=== PATIENT | female | born 1990 | race Caucasian/White ===

== ENCOUNTER 2021-07-15 16:43 | Emergency (ER) | payer OTHER, MEDICAID, SELFPAY ==
--- NOTE | 2021-07-15 16:50 | DI.US.S_ITS ---
PROCEDURE: US OB <= 14 WEEKS FETUS INDICATIONS: VAGINAL BLEEDING OUTSIDE/PRIOR DATING DATA: Last menstrual period (LMP): Unknown. LMP-based estimated date of delivery (AMARILIS): Unknown. First dating scan (date and location): 07/15/2021. Estimated date of delivery (AMARILIS) from first dating scan: Not applicable. TECHNIQUE: Real-time scanning was performed of the fetus and maternal pelvic organs, with image documentation. Endovaginal scanning was also performed to better visualize the fetus and maternal ovaries. COMPARISON: None. FINDINGS: Embryo: No intrauterine gestational sac. No pole. Maternal organs: Right ovary is not visualized. The left ovary is unremarkable. Trace fluid in the cervix. IMPRESSION: 1. of uncertain location. No intrauterine gestational sac. This could represent a missed . 2. Right ovary is not visualized. Left ovary is unremarkable. Recommend trending beta hCG and short-term follow-up ultrasound if clinically indicated. We strive to produce accurate, complete, and clear reports of imaging services. To assist us in improving patient care, this report was composed using standard report templates and voice recognition software. Therefore, it may contain abnormal punctuation, insertions and/or omissions. Occasional wrong-word or sound-alike substitutions may occur. Though we review the report and make efforts to correct it, we do recommend that the report be read carefully in proper context to recognize any text inaccuracies. Dictated by: Luigi Anderson M.D. on 07/15/2021 at 18:42 Approved by: Luigi Anderson M.D. on 07/15/2021 at 18:45
[2021-07-15 16:54] VITALS: BP 133/63; PULSE 106; RESP 16; TEMP 37; O2SAT 100; BMI 28.5
--- NOTE | 2021-07-15 17:10 | ED_ITS ---
HPI - General Adult <Eugene Mosqueda DO - Last Filed: 07/16/21 07:09> General Chief complaint: OB/Uterine Contractions Stated complaint: Believes Having a Miscarrige Time Seen by Provider: 07/15/21 17:06 Source: patient Mode of arrival: Ambulatory History of Present Illness HPI narrative: Patient is a 30-year-old female. Is a at unknown dates. She did have a positive home test several weeks ago. She comes to the emergency department today for evaluation of lower abdominal pain and tenderness. Started yesterday. Also associated with vaginal bleeding. Passing clots. She does have a history of anemia. Pain seems to be associated more on the right side but it is both sides in her lower abdomen. No urinary symptoms. Related Data Home Medications Medication Instructions Recorded Confirmed alprazolam 1 mg tablet 1 mg PO TID PRN 07/15/21 07/15/21 quetiapine 200 mg tablet 200 mg PO BEDTIME 07/15/21 07/15/21 zolpidem 10 mg tablet 10 mg PO BEDTIME PRN 07/15/21 07/15/21 Allergies Allergy/AdvReac Type Severity Reaction Status Date / Time cephalexin [From Keflex] Allergy Hives Verified 07/15/21 16:59 ketorolac [From Toradol] Allergy ITCHING Verified 07/15/21 16:59 latex Allergy Verified 07/15/21 16:59 Review of Systems <Eugene Mosqueda DO - Last Filed: 07/16/21 07:09> Gastrointestinal Gastrointestinal: Reports as per HPI and Reports system reviewed and no additi onal complaints, except as documented Genitourinary Genitourinary: Reports system reviewed and no additional complaints, except as documented and Reports as per HPI Integumentary/Breasts Skin/Breast: Reports system reviewed and no additional complaints, except as documented Neurologic Neurologic: Reports system reviewed and no additional complaints, except as documented Hematologic/Lymphatic On Anticoagulants: No Patient History <DO Jeff Rosado Last Filed: 07/16/21 07:09> Medical History Anemia Social History Smoking Status: Current every day smoker Smoking Status: Current every day smoker Substance Use Type: does not use Exam <DO Jeff Rosado Last Filed: 07/16/21 07:09> Initial Vital Signs Initial Vital Signs: Vital Signs Temperature 98.6 F 07/15/21 16:54 Pulse Rate 106 H 07/15/21 16:54 Respiratory Rate 16 07/15/21 16:54 Blood Pressure 133/63 07/15/21 16:54 Pulse Oximetry 100 07/15/21 16:54 HENMT Head: normal to inspection and normocephalic Resp Effort & Inspection: normal respiratory effort Cardio Rate: regular rate GI Palpation: soft, No guarding and tender (Bilateral lower abdomen) Skin General: no rashes or lesions noted Neuro General: patient alert, patient awake and moves all extremities Extrem General: capillary refill normal Psych Appearance: grossly normal and well kempt <Marisol Wolf MD - Last Filed: 07/16/21 04:38> Initial Vital Signs Initial Vital Signs: Vital Signs Temperature 98.6 F 07/15/21 16:54 Pulse Rate 106 H 07/15/21 16:54 Respiratory Rate 16 07/15/21 16:54 Blood Pressure 133/63 07/15/21 16:54 Pulse Oximetry 100 07/15/21 16:54 Course <Eugene Mosqueda DO - Last Filed: 07/16/21 07:09> Orders Ordered: Discontinued Medications Hydrocodone Bitart/Acetaminophen (Hydrocodone/Acet 5/325 Tablet) 1 tab PO NOW ONE Stop: 07/15/21 17:11 Last Admin: 07/15/21 17:20 Dose: 1 tab Documented by: SANJANA Hydrocodone Bitart/Acetaminophen (Hydrocodone/Acet 5/325 Tablet) 1 tab PO NOW ONE Stop: 07/15/21 19:21 Last Admin: 07/15/21 19:42 Dose: 1 tab Documented by: SANJANA Vital Signs Vital signs: Vital Signs - 8 hr 07/15/21 20:41 Pulse Rate 70 Respiratory Rate 17 Blood Pressure 122/78 Pulse Oximetry 99 <Marisol Wolf MD - Last Filed: 07/16/21 04:38> Orders Ordered: Discontinued Medications Hydrocodone Bitart/Acetaminophen (Hydrocodone/Acet 5/325 Tablet) 1 tab PO NOW ONE Stop: 07/15/21 17:11 Last Admin: 07/15/21 17:20 Dose: 1 tab Documented by: SANJANA Hydrocodone Bitart/Acetaminophen (Hydrocodone/Acet 5/325 Tablet) 1 tab PO NOW ONE Stop: 07/15/21 19:21 Last Admin: 07/15/21 19:42 Dose: 1 tab Documented by: SANJANA Vital Signs Vital signs: Vital Signs - 8 hr 07/15/21 20:41 Pulse Rate 70 Respiratory Rate 17 Blood Pressure 122/78 Pulse Oximetry 99 Medical Decision Making <Eugene Mosqueda DO - Last Filed: 07/16/21 07:09> Lab Data Lab results reviewed: Yes I reviewed the patient's lab results. Result diagrams: 07/15/21 19:30 07/15/21 17:27 Labs: Lab Results 07/15/21 07/15/21 07/15/21 Range/Units 17:27 17:27 17:27 WBC 5.7 (4.5-11.0) X10^3/uL RBC 4.09 (4.0-5.2) X10^6/uL Hgb 7.9 L (12.0-16.0) g/dL Hct 25.8 L (36-46) % MCV 63.1 L (80-100) fL MCH 19.3 L (26-34) PG MCHC 30.6 (30-36) % RDW 17.9 H (11.6-14.8) % Plt Count 302 (150-400) X10^3/uL Neut % (Auto) 60.7 (50-75) % Lymph % (Auto) 32.2 (25-40) % [place] % (Auto) 3.4 (3-14) % Eos % (Auto) 3.1 (2-4) % Baso % (Auto) 0.6 (0-2) % Neut # (Auto) 3400 (2790-9802) /uL Lymph # (Auto) 1800 (1779-9124) /uL [place] # (Auto) 200 (0-900) /uL Eos # (Auto) 200 (0-450) /uL Baso # (Auto) 0 (0-100) /uL RBC Morphology See below Hypochromasia 1+ H Microcytosis 2+ H Sodium 143 (137-145) mmol/L Potassium 3.6 (3.4-5.1) mmol/L Chloride 109 H (98-107) mmol/L Carbon Dioxide 26 (22-32) mmol/L BUN 9 (7-17) mg/dL Creatinine 0.71 (0.52-1.04) mg/dL Estimated GFR > 60.0 (>60) mL/min BUN/Creatinine Ratio 12.7 (6-22) Glucose 94 (70-100) mg/dL Calcium 9.3 (8.4-10.2) mg/dL Total Bilirubin 0.3 (0.2-1.3) mg/dL AST 31 (14-36) IU/L ALT 33 (<35) IU/L Alkaline Phosphatase 50 (38-126) U/L Total Protein 7.0 (6.3-8.2) g/dL Albumin 4.4 (3.5-5.0) g/dL Globulin 2.6 (1.7-4.1) g/dL Albumin/Globulin Ratio 1.7 (1.0-2.8) HCG, Quant < 2.4 mIU/mL U Opiates 300ng/mL cut (Negative) Ur Oxycodone Screen (Negative) Urine Methadone Screen (Negative) Ur Barbiturates Screen (Negative) U Tricyclic Antidepress (Negative) Ur Phencyclidine Scrn (Negative) Ur Amphetamines Screen (Negative) U Methamphetamines Scrn (Negative) Ur MDMA Scrn (Ecstasy) (Negative) U Benzodiazepines Scrn (Negative) Urine Cocaine Screen (Negative) U Marijuana (THC) Screen (Negative) Blood Type A Positive 07/15/21 07/15/21 Range/Units 17:27 19:30 WBC (4.5-11.0) X10^3/uL RBC (4.0-5.2) X10^6/uL Hgb 7.5 L (12.0-16.0) g/dL Hct 24.7 L (36-46) % MCV (80-100) fL MCH (26-34) PG MCHC (30-36) % RDW (11.6-14.8) % Plt Count (150-400) X10^3/uL Neut % (Auto) (50-75) % Lymph % (Auto) (25-40) % [place] % (Auto) (3-14) % Eos % (Auto) (2-4) % Baso % (Auto) (0-2) % Neut # (Auto) (8428-6358) /uL Lymph # (Auto) (1101-5768) /uL [place] # (Auto) (0-900) /uL Eos # (Auto) (0-450) /uL Baso # (Auto) (0-100) /uL RBC Morphology Hypochromasia Microcytosis Sodium (137-145) mmol/L Potassium (3.4-5.1) mmol/L Chloride (98-107) mmol/L Carbon Dioxide (22-32) mmol/L BUN (7-17) mg/dL Creatinine (0.52-1.04) mg/dL Estimated GFR (>60) mL/min BUN/Creatinine Ratio (6-22) Glucose (70-100) mg/dL Calcium (8.4-10.2) mg/dL Total Bilirubin (0.2-1.3) mg/dL AST (14-36) IU/L ALT (<35) IU/L Alkaline Phosphatase (38-126) U/L Total Protein (6.3-8.2) g/dL Albumin (3.5-5.0) g/dL Globulin (1.7-4.1) g/dL Albumin/Globulin Ratio (1.0-2.8) HCG, Quant mIU/mL U Opiates 300ng/mL cut Positive H (Negative) Ur Oxycodone Screen Negative (Negative) Urine Methadone Screen Negative (Negative) Ur Barbiturates Screen Negative (Negative) U Tricyclic Antidepress Positive H (Negative) Ur Phencyclidine Scrn Negative (Negative) Ur Amphetamines Screen Negative (Negative) U Methamphetamines Scrn Negative (Negative) Ur MDMA Scrn (Ecstasy) Negative (Negative) U Benzodiazepines Scrn Positive H (Negative) Urine Cocaine Screen Negative (Negative) U Marijuana (THC) Screen Negative (Negative) Blood Type Point of Care Testing Test Results Negative Urine Dip Bedside Urine Glucose Negative Bedside Urine Bilirubin - Negative Bedside Urine Ketone - Negative Urine Specific [place] 1.020 Bedside Urine Occult Blood +++ Bedside Urine pH 6.0 Bedside Urine Protein - Negative Bedside Urine Urobilinogen - Negative Bedside Urine Nitrite - Negative Bedside Urine Leukocytes - Negative Esterase Point of care testing: Point of Care Testing Test Results Negative Urine Dip Bedside Urine Glucose Negative Bedside Urine Bilirubin - Negative Bedside Urine Ketone - Negative Urine Specific [place] 1.020 Bedside Urine Occult Blood +++ Bedside Urine pH 6.0 Bedside Urine Protein - Negative Bedside Urine Urobilinogen - Negative Bedside Urine Nitrite - Negative Bedside Urine Leukocytes - Negative Esterase Imaging Data US - OB: Radiologist's Impression: [address] [address] Ultrasound Report Signed Patient: Sushma Harris MR#: [id number] : 1990 Acct:[id number] Age/Sex: 30 / F Date of Service: 07/15/21 Loc: ED Accession Number: [id number] ?? Procedure: US OB <= 14 weeks fetus Ordering Provider: Eugene Mosqueda D.O. PROCEDURE:? US OB <= 14 WEEKS FETUS ? INDICATIONS:? VAGINAL BLEEDING ? OUTSIDE/PRIOR DATING DATA:? Last menstrual period (LMP):? Unknown.? LMP-based estimated date of delivery (AMARILIS):? Unknown.? First dating scan (date and location):? 07/15/2021.? Estimated date of delivery (AMARILIS) from first dating scan:? Not applicable. ? TECHNIQUE:? Real-time scanning was performed of the fetus and maternal pelvic organs, with image documentation.? Endovaginal scanning was also performed to better visualize the fetus and maternal ovaries.? ? COMPARISON:? None. ? FINDINGS:? ? Embryo:? No intrauterine gestational sac.? No pole. ? Maternal organs:? Right ovary is not visualized.? The left ovary is unremarkable.? Trace fluid in the cervix. ? IMPRESSION:? ? 1. of uncertain location.? No intrauterine gestational sac.? This could represent a missed . ? 2. Right ovary is not visualized.? Left ovary is unremarkable. ? Recommend trending beta hCG and short-term follow-up ultrasound if clinically indicated. ? We strive to produce accurate, complete, and clear reports of imaging services. To assist us in improving patient care, this report was composed using standard report templates and voice recognition software. Therefore, it may contain abnormal punctuation, insertions and/or omissions. Occasional wrong-word or sound-alike substitutions may occur. Though we review the report and make efforts to correct it, we do recommend that the report be read carefully in proper context to recognize any text inaccuracies. ? ? ? Dictated by: Luigi Anderson M.D. on 07/15/2021 at 18:42 ? ? Approved by: Luigi Anderson M.D. on 07/15/2021 at 18:45?? [facility] Narrative Medical decision making narrative: Patient is Rh positive. Beta-hCG is negative. Ultrasound shows no signs of intrauterine . Patient is somewhat anemic. Did not have a baseline for comparison. Plan will be is to repeat H&H to evaluate for any further decrease. Patient was informed of the findings of the ultrasound. She e xpressed understanding of this. <Marisol Wolf MD - Last Filed: 07/16/21 04:38> Lab Data Labs: Lab Results 07/15/21 07/15/21 07/15/21 Range/Units 17:27 17:27 17:27 WBC 5.7 (4.5-11.0) X10^3/uL RBC 4.09 (4.0-5.2) X10^6/uL Hgb 7.9 L (12.0-16.0) g/dL Hct 25.8 L (36-46) % MCV 63.1 L (80-100) fL MCH 19.3 L (26-34) PG MCHC 30.6 (30-36) % RDW 17.9 H (11.6-14.8) % Plt Count 302 (150-400) X10^3/uL Neut % (Auto) 60.7 (50-75) % Lymph % (Auto) 32.2 (25-40) % [place] % (Auto) 3.4 (3-14) % Eos % (Auto) 3.1 (2-4) % Baso % (Auto) 0.6 (0-2) % Neut # (Auto) 3400 (4449-1174) /uL Lymph # (Auto) 1800 (6003-2659) /uL [place] # (Auto) 200 (0-900) /uL Eos # (Auto) 200 (0-450) /uL Baso # (Auto) 0 (0-100) /uL RBC Morphology See below Hypochromasia 1+ H Microcytosis 2+ H Sodium 143 (137-145) mmol/L Potassium 3.6 (3.4-5.1) mmol/L Chloride 109 H (98-107) mmol/L Carbon Dioxide 26 (22-32) mmol/L BUN 9 (7-17) mg/dL Creatinine 0.71 (0.52-1.04) mg/dL Estimated GFR > 60.0 (>60) mL/min BUN/Creatinine Ratio 12.7 (6-22) Glucose 94 (70-100) mg/dL Calcium 9.3 (8.4-10.2) mg/dL Total Bilirubin 0.3 (0.2-1.3) mg/dL AST 31 (14-36) IU/L ALT 33 (<35) IU/L Alkaline Phosphatase 50 (38-126) U/L Total Protein 7.0 (6.3-8.2) g/dL Albumin 4.4 (3.5-5.0) g/dL Globulin 2.6 (1.7-4.1) g/dL Albumin/Globulin Ratio 1.7 (1.0-2.8) HCG, Quant < 2.4 mIU/mL U Opiates 300ng/mL cut (Negative) Ur Oxycodone Screen (Negative) Urine Methadone Screen (Negative) Ur Barbiturates Screen (Negative) U Tricyclic Antidepress (Negative) Ur Phencyclidine Scrn (Negative) Ur Amphetamines Screen (Negative) U Methamphetamines Scrn (Negative) Ur MDMA Scrn (Ecstasy) (Negative) U Benzodiazepines Scrn (Negative) Urine Cocaine Screen (Negative) U Marijuana (THC) Screen (Negative) Blood Type A Positive 07/15/21 07/15/21 Range/Units 17:27 19:30 WBC (4.5-11.0) X10^3/uL RBC (4.0-5.2) X10^6/uL Hgb 7.5 L (12.0-16.0) g/dL Hct 24.7 L (36-46) % MCV (80-100) fL MCH (26-34) PG MCHC (30-36) % RDW (11.6-14.8) % Plt Count (150-400) X10^3/uL Neut % (Auto) (50-75) % Lymph % (Auto) (25-40) % [place] % (Auto) (3-14) % Eos % (Auto) (2-4) % Baso % (Auto) (0-2) % Neut # (Auto) (8662-5445) /uL Lymph # (Auto) (4275-9839) /uL [place] # (Auto) (0-900) /uL Eos # (Auto) (0-450) /uL Baso # (Auto) (0-100) /uL RBC Morphology Hypochromasia Microcytosis Sodium (137-145) mmol/L Potassium (3.4-5.1) mmol/L Chloride (98-107) mmol/L Carbon Dioxide (22-32) mmol/L BUN (7-17) mg/dL Creatinine (0.52-1.04) mg/dL Estimated GFR (>60) mL/min BUN/Creatinine Ratio (6-22) Glucose (70-100) mg/dL Calcium (8.4-10.2) mg/dL Total Bilirubin (0.2-1.3) mg/dL AST (14-36) IU/L ALT (<35) IU/L Alkaline Phosphatase (38-126) U/L Total Protein (6.3-8.2) g/dL Albumin (3.5-5.0) g/dL Globulin (1.7-4.1) g/dL Albumin/Globulin Ratio (1.0-2.8) HCG, Quant mIU/mL U Opiates 300ng/mL cut Positive H (Negative) Ur Oxycodone Screen Negative (Negative) Urine Methadone Screen Negative (Negative) Ur Barbiturates Screen Negative (Negative) U Tricyclic Antidepress Positive H (Negative) Ur Phencyclidine Scrn Negative (Negative) Ur Amphetamines Screen Negative (Negative) U Methamphetamines Scrn Negative (Negative) Ur MDMA Scrn (Ecstasy) Negative (Negative) U Benzodiazepines Scrn Positive H (Negative) Urine Cocaine Screen Negative (Negative) U Marijuana (THC) Screen Negative (Negative) Blood Type Point of Care Testing Test Results Negative Urine Dip Bedside Urine Glucose Negative Bedside Urine Bilirubin - Negative Bedside Urine Ketone - Negative Urine Specific [place] 1.020 Bedside Urine Occult Blood +++ Bedside Urine pH 6.0 Bedside Urine Protein - Negative Bedside Urine Urobilinogen - Negative Bedside Urine Nitrite - Negative Bedside Urine Leukocytes - Negative Esterase Point of care testing: Point of Care Testing Test Results Negative Urine Dip Bedside Urine Glucose Negative Bedside Urine Bilirubin - Negative Bedside Urine Ketone - Negative Urine Specific [place] 1.020 Bedside Urine Occult Blood +++ Bedside Urine pH 6.0 Bedside Urine Protein - Negative Bedside Urine Urobilinogen - Negative Bedside Urine Nitrite - Negative Bedside Urine Leukocytes - Negative Esterase MDM Narrative Medical decision making narrative: Patient is Rh positive. Beta-hCG is negative. Ultrasound shows no signs of intrauterine . Patient is somewhat anemic. Did not have a baseline for comparison. Plan will be is to repeat H&H to evaluate for any further decrease. Patient was informed of the findings of the ultrasound. She expressed understanding of this. Repeat hemoglobin is essentially the same. Patient is discharged home with instructions to begin iron supplemented with vitamin-C and follow-up with her primary care physician to discuss her significant anemia and heavy vaginal bleeding. She is safe for discharge Discharge Plan Departure Patient Disposition: Home Clinical Impression: Vaginal bleeding, Anemia Instructions: DI for Vaginal Bleeding Activity Restrictions/Additional Instructions: The workup here in the emergency department does show signs that you are not . Your blood counts are somewhat low today I do recommend that you contact your primary doctor for follow-up. It does look like your anemia is fairly chronic. Adding iron to your daily medications to try and replete your iron stores will be helpful. Taking the over counter iron tablet with a tablet of vitamin-C help to absorb the iron more efficiently. You need to talk to your primary care doctor about your heavy vaginal bleeding and your anemia. There are many options for helping correct that. Continue to take all of your medications as directed. You can take Tylenol for any discomfort. Return to the emergency department for any new or worsening symptoms Prescriptions: No Action alprazolam 1 mg tablet 1 mg PO TID PRN (Reason: Anxiety) 0RF Label Comments: TAKE 1 TABLET BY MOUTH THREE TIMES DAILY NEEDED FOR SEVERE ANXIETY quetiapine 200 mg tablet 200 mg PO BEDTIME 0RF Label Comments: TAKE 1 TABLET BY MOUTH AT BEDTIME zolpidem 10 mg tablet 10 mg PO BEDTIME PRN (Reason: Insomnia) 0RF Label Comments: TAKE 1 TABLET BY MOUTH EVERY DAY AT BEDTIME
[2021-07-15] MEDS: HYDROCODONE/ACET 5/325 TABLET 1 TAB PO ×2 (17:20→19:42)
[2021-07-15 17:34] LABS: Add Manual Diff / Slide Review NO; Basophils Absolute Auto 0 /uL (0-100); Basophils Percent Auto 0.6 % (0-2); Eosinophils Absolute Auto 200 /uL (0-450); Eosinophils Percent Auto 3.1 % (2-4); Hematocrit 25.8 % (36-46); Hemoglobin 7.9 g/dL (12.0-16.0); Lymphocytes Absolute Auto 1800 /uL (1100-4500); Lymphocytes Percent Auto 32.2 % (25-40); Mean Corpuscular HGB Conc 30.6 % (30-36); Mean Corpuscular Hemoglobin 19.3 PG (26-34); Mean Corpuscular Volume 63.1 fL (80-100); Monocytes Absolute Auto 200 /uL (0-900); Monocytes Percent Auto 3.4 % (3-14); Neutrophils Absolute Auto 3400 /uL (1500-7000); Neutrophils Percent Auto 60.7 % (50-75); Platelet Count 302 X10^3/uL (150-400); Red Blood Cell Count 4.09 X10^6/uL (4.0-5.2); Red Cell Distribution Width 17.9 % (11.6-14.8); White Blood Cell Count 5.7 X10^3/uL (4.5-11.0)
--- NOTE | 2021-07-15 17:39 | PC.NURSE ---
Pt has had limited care. LMP in March, unknown due date. Affect is flat. Skin is pale, warm,dry. Pt states she is normally a little pale. Noted self cutting scars in right arm.
[2021-07-15 17:52] LABS: Alanine Aminotransferase 33 IU/L (<35); Albumin 4.4 g/dL (3.5-5.0); Albumin Globulin Ratio 1.7 (1.0-2.8); Alkaline Phosphatase 50 U/L (38-126); Aspartate Aminotransferase 31 IU/L (14-36); BUN Creatinine Ratio 12.7 (6-22); Bilirubin Total 0.3 mg/dL (0.2-1.3); Blood Urea Nitrogen 9 mg/dL (7-17); Calcium 9.3 mg/dL (8.4-10.2); Carbon Dioxide 26 mmol/L (22-32); Chloride 109 mmol/L (98-107); Estimated Glomerular Filt Rate > 60.0 mL/min (>60); Globulin 2.6 g/dL (1.7-4.1); Glucose 94 mg/dL (70-100); HEMOLYSIS < 15 (0-50); Potassium 3.6 mmol/L (3.4-5.1); Sodium 143 mmol/L (137-145)
[2021-07-15 17:56] LABS: Hypochromasia 1+; Microcytosis 2+
[2021-07-15 18:02] LABS: UR Morphine/Opiate cutoff 300 Positive (Negative); Ur Creatinine Normal (Normal); Ur Specific Gravity Normal (Normal); Urine Amphetamines Negative (Negative); Urine Barbiturates Negative (Negative); Urine Benzodiazepines Positive (Negative); Urine Cocaine Negative (Negative); Urine MDMA Negative (Negative); Urine Methadone Negative (Negative); Urine Methamphetamines Negative (Negative); Urine Oxycodone Negative (Negative); Urine Phencyclidine Negative (Negative); Urine Tetrahydrocannabinol Negative (Negative); Urine Tricyclic Antidepressant Positive (Negative); Urine pH Normal (Normal)
[2021-07-15 18:04] LABS: HCG Quantitative /Beta subunit < 2.4 mIU/mL
[2021-07-15 19:42] LABS: Hematocrit 24.7 % (36-46); Hemoglobin 7.5 g/dL (12.0-16.0)
[2021-07-15 20:41] VITALS: BP 122/78; PULSE 70; RESP 17; O2SAT 99
== END 2021-07-15 20:42 | disposition home or self-care (01) ==
PROVIDERS: Emergency Provider Emergency Medicine
DX: N93.9 Abnormal uterine and vaginal bleeding, unspecified (principal); D64.9 Anemia, unspecified
CPT/HCPCS: 36415; 76801; 80053; 80305; 81003; 81025; 84702; 85014; 85018; 85025; 86900; 86901; 99284

== ENCOUNTER 2021-08-07 15:37 | Emergency (ER) | payer OTHER, MEDICAID, SELFPAY ==
[2021-08-07] VITALS (11 sets, daily range): BP systolic 100–113; BP diastolic 56–77; PULSE 74–110; RESP 18; TEMP 36.8; O2SAT 96–100; BMI 26.5
--- NOTE | 2021-08-07 17:25 | ED_ITS ---
HPI - General Adult <Eugene Mosqueda DO - Last Filed: 08/11/21 07:06> General Chief complaint: Abdominal Pain Stated complaint: UPPER ABD PAIN, UNABLE TO KEEP ANYTHING DOWN Time Seen by Provider: 08/07/21 17:12 Source: patient Mode of arrival: Wheelchair History of Present Illness HPI narrative: Patient is a 30-year-old female. She is here for evaluation of several days of upper abdominal discomfort. Also having nausea and vomiting. She has not had a menstrual cycle for the past couple months. She has taken multiple home test. States that several them have been positive however some have also been negative. She denies any urinary symptoms. No vaginal bleeding. No change in bowel habits. Has had C-sections in the past but no other abdominal surgeries. Has not tried anything for symptoms prior to Related Data Home Medications Medication Instructions Recorded Confirmed alprazolam 1 mg tablet 1 mg PO TID PRN 07/15/21 07/15/21 quetiapine 200 mg tablet 200 mg PO BEDTIME 07/15/21 07/15/21 zolpidem 10 mg tablet 10 mg PO BEDTIME PRN 07/15/21 07/15/21 Previous Rx's Medication Instructions Recorded hydrocodone 5 mg-acetaminophen 325 1 tab PO Q6H PRN #8 tab 08/07/21 mg tablet ondansetron 4 mg disintegrating 4 mg PO Q6HR PRN #10 tab 08/07/21 tablet Allergies Allergy/AdvReac Type Severity Reaction Status Date / Time cephalexin [From Keflex] Allergy Hives Verified 07/15/21 16:59 ketorolac [From Toradol] Allergy ITCHING Verified 07/15/21 16:59 latex Allergy Verified 07/15/21 16:59 tramadol Allergy Hives Verified 08/07/21 15:42 Review of Systems <Eugene Mosqueda DO - Last Filed: 08/11/21 07:06> Constitutional Constitutional: Denies fever(s) Cardiovascular Cardiovascular: Reports system reviewed and no additional complaints, except as documented Respiratory Respiratory: Reports system reviewed and no additional complaints, except as documented Gastrointestinal Gastrointestinal: Reports as per HPI and Reports system reviewed and no additional complaints, except as documented Genitourinary Genitourinary: Denies dysuria Musculoskeletal Musculoskeletal: Reports system reviewed and no additional complaints, except as documented Integumentary/Breasts Skin/Breast: Reports system reviewed and no additional complaints, except as documented Neurologic Neurologic: Reports system reviewed and no additional complaints, except as documented Hematologic/Lymphatic On Anticoagulants: No Patient History <DO Jeff Rosado Last Filed: 08/11/21 07:06> Medical History Anemia Social History Smoking Status: Current every day smoker Smoking Status: Current every day smoker tobacco type: cigarettes Substance Use Type: does not use Exam <DO Jeff Rosado Last Filed: 08/11/21 07:06> Initial Vital Signs Initial Vital Signs: Vital Signs Temperature 98.2 F 08/07/21 15:42 Pulse Rate 110 H 08/07/21 15:42 Respiratory Rate 18 08/07/21 15:42 Blood Pressure 107/56 L 08/07/21 15:42 Pulse Oximetry 100 08/07/21 15:42 Const General: cooperative and well developed Limitations: mental status not altered [facility] Head: normal to inspection and normocephalic Resp Effort & Inspection: normal respiratory effort Auscultation: clear to auscultation bilaterally Cardio Rate: regular rate Rhythm: regular rhythm GI Inspection: non-distended Palpation: soft, No guarding and tender (Diffuse) Back/Spine/Pelvis Back: normal to inspection Skin General: no rashes or lesions noted Neuro General: patient alert, patient awake, patient oriented x3 and moves all extremities Extrem General: capillary refill normal Psych Appearance: grossly normal and well kempt <Yvonne Sarkar DO - Last Filed: 08/08/21 00:52> Initial Vital Signs Initial Vital Signs: Vital Signs Temperature 98.2 F 08/07/21 15:42 Pulse Rate 110 H 08/07/21 15:42 Respiratory Rate 18 08/07/21 15:42 Blood Pressure 107/56 L 08/07/21 15:42 Pulse Oximetry 100 08/07/21 15:42 Course <DO Jeff Rosado Last Filed: 08/11/21 07:06> Orders Ordered: Discontinued Medications Hydrocodone Bitart/Acetaminophen (Hydrocodone/Acet 5/325 Prepack) 1 bottle MISC SEEINSTR ONE Stop: 08/07/21 20:32 Last Admin: 08/07/21 20:50 Dose: 1 bottle Documented by: BRITTANIE Sodium Chloride (Normal Saline 0.9%) 1,000 mls @ 1,000 mls/hr IV BOLUS ONE Stop: 08/07/21 18:25 Last Infusion: 08/07/21 18:47 Dose: 0 mls/hr Documented by: Admin: 08/07/21 17:33 Dose: 1,000 mls/hr Documented by: KANDI Ibuprofen (Ibuprofen 400 Mg Tablet) 800 mg PO NOW ONE Stop: 08/07/21 20:32 Last Admin: 08/07/21 20:50 Dose: 800 mg Documented by: BRITTANIE Morphine Sulfate (Morphine 4 Mg/Ml Inj) 4 mg IV NOW ONE Stop: 08/07/21 17:27 Last Admin: 08/07/21 17:33 Dose: 4 mg Documented by: KANDI Morphine Sulfate (Morphine 4 Mg/Ml Inj) 4 mg IV NOW ONE Stop: 08/07/21 19:06 Last Admin: 08/07/21 19:16 Dose: 4 mg Documented by: KANDI Morphine Sulfate (Morphine 4 Mg/Ml Inj) 4 mg IV NOW ONE Stop: 08/07/21 20:32 Last Admin: 08/07/21 20:50 Dose: 4 mg Documented by: BRITTANIE Ondansetron HCl (Ondansetron 4 Mg/2 Ml Inj) 4 mg IV NOW ONE Stop: 08/07/21 17:27 Last Admin: 08/07/21 17:33 Dose: 4 mg Documented by: KANID Ondansetron HCl (Ondansetron 4 Mg Odt Prepack) 1 bottle MISC SEEINSTR ONE Stop: 08/07/21 20:32 Last Admin: 08/07/21 20:50 Dose: 1 bottle Documented by: BRITTANIE Vital Signs Vital signs: Vital Signs - 8 hr 08/07/21 17:44 08/07/21 17:45 08/07/21 18:00 Pulse Rate 92 H 87 85 Respiratory Rate 18 Blood Pressure 105/60 108/58 L Pulse Oximetry 99 98 99 08/07/21 18:30 08/07/21 19:00 08/07/21 19:30 Pulse Rate 83 74 86 Respiratory Rate 18 18 Blood Pressure 100/71 106/77 Pulse Oximetry 100 96 100 08/07/21 20:00 08/07/21 20:30 08/07/21 20:52 Pulse Rate 81 89 88 Respiratory Rate Blood Pressure Pulse Oximetry 100 99 100 08/07/21 20:54 Pulse Rate Respiratory Rate Blood Pressure 113/64 Pulse Oximetry <Yvonne Sarkar, - Last Filed: 08/08/21 00:52> Orders Ordered: Discontinued Medications Hydrocodone Bitart/Acetaminophen (Hydrocodone/Acet 5/325 Prepack) 1 bottle MISC SEEINSTR ONE Stop: 08/07/21 20:32 Last Admin: 08/07/21 20:50 Dose: 1 bottle Documented by: BRITTANIE Sodium Chloride (Normal Saline 0.9%) 1,000 mls @ 1,000 mls/hr IV BOLUS ONE Stop: 08/07/21 18:25 Last Infusion: 08/07/21 18:47 Dose: 0 mls/hr Documented by: Admin: 08/07/21 17:33 Dose: 1,000 mls/hr Documented by: KANDI Ibuprofen (Ibuprofen 400 Mg Tablet) 800 mg PO NOW ONE Stop: 08/07/21 20:32 Last Admin: 08/07/21 20:50 Dose: 800 mg Documented by: BRITTANIE Morphine Sulfate (Morphine 4 Mg/Ml Inj) 4 mg IV NOW ONE Stop: 08/07/21 17:27 Last Admin: 08/07/21 17:33 Dose: 4 mg Documented by: KANDI Morphine Sulfate (Morphine 4 Mg/Ml Inj) 4 mg IV NOW ONE Stop: 08/07/21 19:06 Last Admin: 08/07/21 19:16 Dose: 4 mg Documented by: KANDI Morphine Sulfate (Morphine 4 Mg/Ml Inj) 4 mg IV NOW ONE Stop: 08/07/21 20:32 Last Admin: 08/07/21 20:50 Dose: 4 mg Documented by: BRITTANIE Ondansetron HCl (Ondansetron 4 Mg/2 Ml Inj) 4 mg IV NOW ONE Stop: 08/07/21 17:27 Last Admin: 08/07/21 17:33 Dose: 4 mg Documented by: KANDI Ondansetron HCl (Ondansetron 4 Mg Odt Prepack) 1 bottle MISC SEEINSTR ONE Stop: 08/07/21 20:32 Last Admin: 08/07/21 20:50 Dose: 1 bottle Documented by: HGUBERN Vital Signs Vital signs: Vital Signs - 8 hr 08/07/21 17:44 08/07/21 17:45 08/07/21 18:00 Pulse Rate 92 H 87 85 Respiratory Rate 18 Blood Pressure 105/60 108/58 L Pulse Oximetry 99 98 99 08/07/21 18:30 08/07/21 19:00 08/07/21 19:30 Pulse Rate 83 74 86 Respiratory Rate 18 18 Blood Pressure 100/71 106/77 Pulse Oximetry 100 96 100 08/07/21 20:00 08/07/21 20:30 08/07/21 20:52 Pulse Rate 81 89 88 Respiratory Rate Blood Pressure Pulse Oximetry 100 99 100 08/07/21 20:54 Pulse Rate Respiratory Rate Blood Pressure 113/64 Pulse Oximetry Medical Decision Making <Eugene Mosqueda, - Last Filed: 08/11/21 07:06> Lab Data Lab results reviewed: Yes I reviewed the patient's lab results. Result diagrams: 08/07/21 17:42 08/07/21 17:42 Labs: Lab Results 08/07/21 08/07/21 08/07/21 Range/Units 17:19 17:19 17:42 WBC 6.1 (4.5-11.0) X10^3/uL RBC 4.43 (4.0-5.2) X10^6/uL Hgb 8.5 L (12.0-16.0) g/dL Hct 27.6 L (36-46) % MCV 62.3 L (80-100) fL MCH 19.2 L (26-34) PG MCHC 30.8 (30-36) % RDW 18.1 H (11.6-14.8) % Plt Count 348 (150-400) X10^3/uL Neut % (Auto) 62.6 (50-75) % Lymph % (Auto) 30.2 (25-40) % Isabel[place] % (Auto) 3.8 (3-14) % Eos % (Auto) 2.7 (2-4) % Baso % (Auto) 0.7 (0-2) % Neut # (Auto) 3800 (1984-9646) /uL Lymph # (Auto) 1900 (4330-7328) /uL [place] # (Auto) 200 (0-900) /uL Eos # (Auto) 200 (0-450) /uL Baso # (Auto) 0 (0-100) /uL Platelet Estimate Adequate on smear RBC Morphology See below Polychromasia 1+ H Hypochromasia 2+ H Poikilocytosis 1+ H Anisocytosis 2+ H Microcytosis 3+ H Ovalocytes 2+ H Sodium (137-145) mmol/L Potassium (3.4-5.1) mmol/L Chloride (98-107) mmol/L Carbon Dioxide (22-32) mmol/L BUN (7-17) mg/dL Creatinine (0.52-1.04) mg/dL Estimated GFR (>60) mL/min BUN/Creatinine Ratio (6-22) Glucose (70-100) mg/dL Calcium (8.4-10.2) mg/dL Total Bilirubin (0.2-1.3) mg/dL AST (14-36) IU/L ALT (<35) IU/L Alkaline Phosphatase (38-126) U/L Total Protein (6.3-8.2) g/dL Albumin (3.5-5.0) g/dL Globulin (1.7-4.1) g/dL Albumin/Globulin Ratio (1.0-2.8) Lipase (23-300) U/L HCG, Quant mIU/mL Ur Bilirubin Confirm Negative (Negative) Urine RBC None seen (0-5/HPF) Urine WBC None seen (0-5/HPF) Calcium Oxalate Crystal Moderate H Amorphous Sediment 1+ Urine Bacteria None seen (None) Ur Culture Indicated? Culture not indicate 08/07/21 08/07/21 Range/Units 17:42 17:42 WBC (4.5-11.0) X10^3/uL RBC (4.0-5.2) X10^6/uL Hgb (12.0-16.0) g/dL Hct (36-46) % MCV (80-100) fL MCH (26-34) PG MCHC (30-36) % RDW (11.6-14.8) % Plt Count (150-400) X10^3/uL Neut % (Auto) (50-75) % Lymph % (Auto) (25-40) % [place] % (Auto) (3-14) % Eos % (Auto) (2-4) % Baso % (Auto) (0-2) % Neut # (Auto) (1601-8713) /uL Lymph # (Auto) (6203-8876) /uL [place] # (Auto) (0-900) /uL Eos # (Auto) (0-450) /uL Baso # (Auto) (0-100) /uL Platelet Estimate RBC Morphology Polychromasia Hypochromasia Poikilocytosis Anisocytosis Microcytosis Ovalocytes Sodium 146 H (137-145) mmol/L Potassium 3.6 (3.4-5.1) mmol/L Chloride 110 H (98-107) mmol/L Carbon Dioxide 24 (22-32) mmol/L BUN 13 (7-17) mg/dL Creatinine 0.75 (0.52-1.04) mg/dL Estimated GFR > 60.0 (>60) mL/min BUN/Creatinine Ratio 17.3 (6-22) Glucose 94 (70-100) mg/dL Calcium 10.3 H (8.4-10.2) mg/dL Total Bilirubin 0.5 (0.2-1.3) mg/dL AST 26 (14-36) IU/L ALT 19 (<35) IU/L Alkaline Phosphatase 57 (38-126) U/L Total Protein 8.0 (6.3-8.2) g/dL Albumin 5.0 (3.5-5.0) g/dL Globulin 3.0 (1.7-4.1) g/dL Albumin/Globulin Ratio 1.7 (1.0-2.8) Lipase 174 (23-300) U/L HCG, Quant < 2.4 mIU/mL Ur Bilirubin Confirm (Negative) Urine RBC (0-5/HPF) Urine WBC (0-5/HPF) Calcium Oxalate Crystal Amorphous Sediment Urine Bacteria (None) Ur Culture Indicated? Point of Care Testing Test Results Negative Urine Dip Bedside Urine Glucose Negative Bedside Urine Bilirubin + 1 Bedside Urine Ketone - Negative Urine Specific [place] 1.030 Bedside Urine Occult Blood - Negative Bedside Urine pH 6 Bedside Urine Protein +/- 15 Bedside Urine Urobilinogen +/- 1mg Bedside Urine Nitrite - Negative Bedside Urine Leukocytes - Negative Esterase Point of care testing: Point of Care Testing Test Results Negative Urine Dip Bedside Urine Glucose Negative Bedside Urine Bilirubin + 1 Bedside Urine Ketone - Negative Urine Specific [place] 1.030 Bedside Urine Occult Blood - Negative Bedside Urine pH 6 Bedside Urine Protein +/- 15 Bedside Urine Urobilinogen +/- 1mg Bedside Urine Nitrite - Negative Bedside Urine Leukocytes - Negative Esterase MDM Narrative Medical decision making narrative: test is negative. LFTs unremarkable. Lipase is unremarkable. Continues to have fairly significant abdominal discomfort despite medications. Will obtain a CT scan for further evaluation. Care turned over to Dr. Sarkar to follow-up on CT scan and disposition. <Yvonne Sarkar, DO - Last Filed: 08/08/21 00:52> Lab Data Labs: Lab Results 08/07/21 08/07/21 08/07/21 Range/Units 17:19 17:19 17:42 WBC 6.1 (4.5-11.0) X10^3/uL RBC 4.43 (4.0-5.2) X10^6/uL Hgb 8.5 L (12.0-16.0) g/dL Hct 27.6 L (36-46) % MCV 62.3 L (80-100) fL MCH 19.2 L (26-34) PG MCHC 30.8 (30-36) % RDW 18.1 H (11.6-14.8) % Plt Count 348 (150-400) X10^3/uL Neut % (Auto) 62.6 (50-75) % Lymph % (Auto) 30.2 (25-40) % Isabel[place] % (Auto) 3.8 (3-14) % Eos % (Auto) 2.7 (2-4) % Baso % (Auto) 0.7 (0-2) % Neut # (Auto) 3800 (8973-6513) /uL Lymph # (Auto) 1900 (5351-5235) /uL [place] # (Auto) 200 (0-900) /uL Eos # (Auto) 200 (0-450) /uL Baso # (Auto) 0 (0-100) /uL Platelet Estimate Adequate on smear RBC Morphology See below Polychromasia 1+ H Hypochromasia 2+ H Poikilocytosis 1+ H Anisocytosis 2+ H Microcytosis 3+ H Ovalocytes 2+ H Sodium (137-145) mmol/L Potassium (3.4-5.1) mmol/L Chloride (98-107) mmol/L Carbon Dioxide (22-32) mmol/L BUN (7-17) mg/dL Creatinine (0.52-1.04) mg/dL Estimated GFR (>60) mL/min BUN/Creatinine Ratio (6-22) Glucose (70-100) mg/dL Calcium (8.4-10.2) mg/dL Total Bilirubin (0.2-1.3) mg/dL AST (14-36) IU/L ALT (<35) IU/L Alkaline Phosphatase (38-126) U/L Total Protein (6.3-8.2) g/dL Albumin (3.5-5.0) g/dL Globulin (1.7-4.1) g/dL Albumin/Globulin Ratio (1.0-2.8) Lipase (23-300) U/L HCG, Quant mIU/mL Ur Bilirubin Confirm Negative (Negative) Urine RBC None seen (0-5/HPF) Urine WBC None seen (0-5/HPF) Calcium Oxalate Crystal Moderate H Amorphous Sediment 1+ Urine Bacteria None seen (None) Ur Culture Indicated? Culture not indicate 08/07/21 08/07/21 Range/Units 17:42 17:42 WBC (4.5-11.0) X10^3/uL RBC (4.0-5.2) X10^6/uL Hgb (12.0-16.0) g/dL Hct (36-46) % MCV (80-100) fL MCH (26-34) PG MCHC (30-36) % RDW (11.6-14.8) % Plt Count (150-400) X10^3/uL Neut % (Auto) (50-75) % Lymph % (Auto) (25-40) % Isabel[place] % (Auto) (3-14) % Eos % (Auto) (2-4) % Baso % (Auto) (0-2) % Neut # (Auto) (9239-6774) /uL Lymph # (Auto) (0851-9989) /uL Isabela # (Auto) (0-900) /uL Eos # (Auto) (0-450) /uL Baso # (Auto) (0-100) /uL Platelet Estimate RBC Morphology Polychromasia Hypochromasia Poikilocytosis Anisocytosis Microcytosis Ovalocytes Sodium 146 H (137-145) mmol/L Potassium 3.6 (3.4-5.1) mmol/L Chloride 110 H (98-107) mmol/L Carbon Dioxide 24 (22-32) mmol/L BUN 13 (7-17) mg/dL Creatinine 0.75 (0.52-1.04) mg/dL Estimated GFR > 60.0 (>60) mL/min BUN/Creatinine Ratio 17.3 (6-22) Glucose 94 (70-100) mg/dL Calcium 10.3 H (8.4-10.2) mg/dL Total Bilirubin 0.5 (0.2-1.3) mg/dL AST 26 (14-36) IU/L ALT 19 (<35) IU/L Alkaline Phosphatase 57 (38-126) U/L Total Protein 8.0 (6.3-8.2) g/dL Albumin 5.0 (3.5-5.0) g/dL Globulin 3.0 (1.7-4.1) g/dL Albumin/Globulin Ratio 1.7 (1.0-2.8) Lipase 174 (23-300) U/L HCG, Quant < 2.4 mIU/mL Ur Bilirubin Confirm (Negative) Urine RBC (0-5/HPF) Urine WBC (0-5/HPF) Calcium Oxalate Crystal Amorphous Sediment Urine Bacteria (None) Ur Culture Indicated? Point of Care Testing Test Results Negative Urine Dip Bedside Urine Glucose Negative Bedside Urine Bilirubin + 1 Bedside Urine Ketone - Negative Urine Specific [place] 1.030 Bedside Urine Occult Blood - Negative Bedside Urine pH 6 Bedside Urine Protein +/- 15 Bedside Urine Urobilinogen +/- 1mg Bedside Urine Nitrite - Negative Bedside Urine Leukocytes - Negative Esterase Point of care testing: Point of Care Testing Test Results Negative Urine Dip Bedside Urine Glucose Negative Bedside Urine Bilirubin + 1 Bedside Urine Ketone - Negative Urine Specific [place] 1.030 Bedside Urine Occult Blood - Negative Bedside Urine pH 6 Bedside Urine Protein +/- 15 Bedside Urine Urobilinogen +/- 1mg Bedside Urine Nitrite - Negative Bedside Urine Leukocytes - Negative Esterase Imaging Data CT scan - abdomen/pelvis: Radiologist's Impression: PROCEDURE:? CT ABDOMEN PELVIS W CON ? INDICATIONS:? Generalized abdominal pain ? TECHNIQUE:? After the administration of IV contrast, axial sections were acquired from the lung bases to the pubic symphysis.? Coronal and sagittal reformats were performed.? For radiation dose reduction, the following was used:? automated exposure control, adjustment of mA and/or kV according to patient size. ? COMPARISON:? None. ? FINDINGS:? Image quality:? Excellent.? ? Lung bases:? There is mild dependent atelectasis.? There is a mildly prominent paraesophageal lymph node within the inferior mediastinum measuring up to 0.7 cm in short axis.? The visualized esophagus demonstrates normal wall thickness. ? Heart:? Heart is normal in size. ? ? ABDOMEN: Liver:? No mass lesion. Gallbladder:? Within normal limits without gallstones.? ? Biliary ducts:? No biliary ductal dilatation.? ? Pancreas:? No peripancreatic fat stranding or fluid collections.? ? Spleen:? Spleen is borderline enlarged measuring up to 13.3 cm. Adrenal Glands:? No adrenal nodules.? ? Kidneys and Ureters:? No hydronephrosis.? ? ? Stomach and Bowel:? Stomach, small bowel loops, and colon are normal in caliber and wall thickness.? The appendix is normal in appearance.? There is mild colonic diver ticulosis without acute diverticulitis.? Peritoneum:? No abnormal intraperitoneal fluid.? A small amount of free fluid in the pelvis appears within physiologic limits.? No free air.? ? Ventral Wall: ? No hernia.? Abdominal Nodes:? No retroperitoneal or mesenteric adenopathy by size criteria.? Vessels:? Aorta and inferior vena cava are normal in size.? ? PELVIS: Pelvic Organs:? The uterus and ovaries appear within normal size limits.? ? Bladder:? Unremarkable.? ? Pelvic Nodes: No enlarged lymph nodes.? Miscellaneous: No inguinal hernias are seen. ? ? ? Bones:? Visualized osseous structures demonstrate no suspicious focal lesions. ? ? IMPRESSION:? ? 1.? No definite acute intra-abdominal abnormality.? Specifically, no evidence of appendicitis. ? 2. Mildly prominent paraesophageal lymph node within the visualized mediastinum is nonspecific.? The findings are likely reactive but if there is clinical suspicion for soft a giant is or possible esophageal mass, recommend further evaluation with thoracic CT or endoscopy.? ? ? Dictated by: Riki Cerda M.D. on 08/07/2021 at 20:07 ? ? MDM Narrative Medical decision making narrative: test is negative. LFTs unremarkable. Lipase is unremarkable. Continues to have fairly significant abdominal discomfort despite medications. Will obtain a CT scan for further evaluation. Care turned over to Dr. Sarkar to follow-up on CT scan and disposition. I received sign-out from Dr. Mosqueda seen evaluated patient myself. She is still complaining of some mild epigastric pain. CT does show some possible reactive mediastinal lymph nodes not sure these are contributing to her pain and discomfort. At this time no antibiotics are indicated I recommended outpatient follow-up in regards to these lymph nodes. Recommend ibuprofen she is requesting some pain medication as well. Discharge Plan Departure Patient Disposition: Home Clinical Impression: Abdominal pain Instructions: DI for Abdominal Pain-Adult Activity Restrictions/Additional Instructions: *You have been diagnosed with abdominal pain *What to do: Your CT scan did show some esophageal know that of probably rate active. However it is recommended you have outpatient follow-up to be sure that they have resolved. They may or may not be causing your symptoms today. *Continue to take medications as directed Ibuprofen 600 mg every 6 hours if needed for [id number] pain and this will help with inflammation [place] 1 tablet every 6 hours needed for severe pain Zofran 4 mg every 6 hours before [place] to help with nausea *Follow up with your primary care provider in 2-3 days or call [phone] *Return to ER if you should have increasing pain persistent vomiting or any new, worsening or concerning symptoms CONTROLLED SUBSTANCE DISCHARGE (Narcotoic/benzodiazepine/Flexeril/Phenergan) 1. You have been prescribed narcotic medications, it does have acetaminophen/Tylenol/paracetamol in it, DO NOT TAKE MORE THAN 4,00mg in 24 hours of Tylenol. TRAMADOL DOES NOT CONTAIN TYLENOL 2. Please understand that we cannot provide further refills of narcotics, benzodiazepines or controlled substances through the ED and her pain management will need to be through your provider. 3. While on these medications you cannot drive or operate heavy machinery. 4. You cannot sign legal documents or perform any duties such as this. 5. As long as you're taking opiate pain medications he should also be taking a stool softener such as Colace, Dulcolax, MiraLAX or prune juice, to help avoid constipation. Prescriptions: New hydrocodone-acetaminophen 5-325 mg tablet 1 tab PO Q6H PRN (Reason: pain) Qty: 8 0RF ondansetron 4 mg tablet,disintegrating 4 mg PO Q6HR PRN (Reason: nausea and vomiting) Qty: 10 0RF No Action alprazolam 1 mg tablet 1 mg PO TID PRN (Reason: Anxiety) 0RF Label Comments: TAKE 1 TABLET BY MOUTH THREE TIMES DAILY NEEDED FOR SEVERE ANXIETY quetiapine 200 mg tablet 200 mg PO BEDTIME 0RF Label Comments: TAKE 1 TABLET BY MOUTH AT BEDTIME zolpidem 10 mg tablet 10 mg PO BEDTIME PRN (Reason: Insomnia) 0RF Label Comments: TAKE 1 TABLET BY MOUTH EVERY DAY AT BEDTIME
[2021-08-07] MEDS: MORPHINE 4 MG/ML INJ IV ×3 (17:33→20:50)
[2021-08-07] MEDS: ONDANSETRON 4 MG/2 ML INJ IV (17:33)
[2021-08-07] MEDS: SODIUM CHLORIDE 0.9% 1,000 ML 1000 ML IV (17:33)
[2021-08-07 18:12] LABS: Alanine Aminotransferase 19 IU/L (<35); Albumin Globulin Ratio 1.7 (1.0-2.8); Alkaline Phosphatase 57 U/L (38-126); Aspartate Aminotransferase 26 IU/L (14-36); BUN Creatinine Ratio 17.3 (6-22); Bilirubin Total 0.5 mg/dL (0.2-1.3); Blood Urea Nitrogen 13 mg/dL (7-17); Calcium 10.3 mg/dL (8.4-10.2); Carbon Dioxide 24 mmol/L (22-32); Chloride 110 mmol/L (98-107); Estimated Glomerular Filt Rate > 60.0 mL/min (>60); Glucose 94 mg/dL (70-100); HEMOLYSIS < 15 (0-50); Lipase 174 U/L (23-300); Potassium 3.6 mmol/L (3.4-5.1); Sodium 146 mmol/L (137-145)
[2021-08-07 18:24] LABS: Add Manual Diff / Slide Review NO; Basophils Absolute Auto 0 /uL (0-100); Basophils Percent Auto 0.7 % (0-2); Eosinophils Absolute Auto 200 /uL (0-450); Eosinophils Percent Auto 2.7 % (2-4); Hematocrit 27.6 % (36-46); Hemoglobin 8.5 g/dL (12.0-16.0); Lymphocytes Absolute Auto 1900 /uL (1100-4500); Lymphocytes Percent Auto 30.2 % (25-40); Mean Corpuscular HGB Conc 30.8 % (30-36); Mean Corpuscular Hemoglobin 19.2 PG (26-34); Mean Corpuscular Volume 62.3 fL (80-100); Monocytes Absolute Auto 200 /uL (0-900); Monocytes Percent Auto 3.8 % (3-14); Neutrophils Absolute Auto 3800 /uL (1500-7000); Neutrophils Percent Auto 62.6 % (50-75); Platelet Count 348 X10^3/uL (150-400); Red Blood Cell Count 4.43 X10^6/uL (4.0-5.2); Red Cell Distribution Width 18.1 % (11.6-14.8); White Blood Cell Count 6.1 X10^3/uL (4.5-11.0)
[2021-08-07 18:29] LABS: HCG Quantitative /Beta subunit < 2.4 mIU/mL
[2021-08-07 18:31] LABS: Amorphous Sediment Urine 1+; Bacteria Urine None Seen; Calcium Oxalate Crystals Urine Moderate; RBC Urine None Seen (0-5/HPF); WBC Urine None Seen (0-5/HPF)
[2021-08-07 18:55] LABS: Ictotest Urine Negative (Negative)
--- NOTE | 2021-08-07 19:05 | DI.CT.S_ITS ---
PROCEDURE: CT ABDOMEN PELVIS W CON INDICATIONS: Generalized abdominal pain TECHNIQUE: After the administration of IV contrast, axial sections were acquired from the lung bases to the pubic symphysis. Coronal and sagittal reformats were performed. For radiation dose reduction, the following was used: automated exposure control, adjustment of mA and/or kV according to patient size. COMPARISON: None. FINDINGS: Image quality: Excellent. Lung bases: There is mild dependent atelectasis. There is a mildly prominent paraesophageal lymph node within the inferior mediastinum measuring up to 0.7 cm in short axis. The visualized esophagus demonstrates normal wall thickness. Heart: Heart is normal in size. ABDOMEN: Liver: No mass lesion. Gallbladder: Within normal limits without gallstones. Biliary ducts: No biliary ductal dilatation. Pancreas: No peripancreatic fat stranding or fluid collections. Spleen: Spleen is borderline enlarged measuring up to 13.3 cm. Adrenal Glands: No adrenal nodules. Kidneys and Ureters: No hydronephrosis. Stomach and Bowel: Stomach, small bowel loops, and colon are normal in caliber and wall thickness. The appendix is normal in appearance. There is mild colonic diverticulosis without acute diverticulitis. Peritoneum: No abnormal intraperitoneal fluid. A small amount of free fluid in the pelvis appears within physiologic limits. No free air. Ventral Wall: No hernia. Abdominal Nodes: No retroperitoneal or mesenteric adenopathy by size criteria. Vessels: Aorta and inferior vena cava are normal in size. PELVIS: Pelvic Organs: The uterus and ovaries appear within normal size limits. Bladder: Unremarkable. Pelvic Nodes: No enlarged lymph nodes. Miscellaneous: No inguinal hernias are seen. Bones: Visualized osseous structures demonstrate no suspicious focal lesions. IMPRESSION: 1. No definite acute intra-abdominal abnormality. Specifically, no evidence of appendicitis. 2. Mildly prominent paraesophageal lymph node within the visualized mediastinum is nonspecific. The findings are likely reactive but if there is clinical suspicion for soft a giant is or possible esophageal mass, recommend further evaluation with thoracic CT or endoscopy. Dictated by: Riki Cerda M.D. on 08/07/2021 at 20:07 Approved by: Riki Cerda M.D. on 08/07/2021 at 20:10
[2021-08-07 20:06] LABS: Anisocytosis 2+; Microcytosis 3+; Platelet Estimate Adequate on smear
[2021-08-07 20:07] LABS: Hypochromasia 2+; Ovalocytes 2+; Poikilocytosis 1+; Polychromasia 1+
[2021-08-07] MEDS: IBUPROFEN 400 MG TABLET 800 MG PO (20:50)
[2021-08-07] MEDS: HYDROCODONE/ACET 5/325 PREPACK 1 BOTTLE MISC (20:50)
[2021-08-07] MEDS: ONDANSETRON 4 MG ODT PREPACK 1 BOTTLE MISC (20:50)
== END 2021-08-07 21:02 | disposition home or self-care (01) ==
PROVIDERS: Emergency Medicine; Nurse Practitioner Family; Emergency Provider Emergency Medicine
DX: R10.10 Upper abdominal pain, unspecified (principal); R11.2 Nausea with vomiting, unspecified
CPT/HCPCS: 36415; 74177; 80053; 81003; 81015; 81025; 83690; 84702; 85025; 87086; 96361; 96374; 96375; 96376; 99284; J2270; J2405

== ENCOUNTER 2021-08-14 16:35 | Emergency (ER) | payer OTHER, MEDICAID, SELFPAY ==
[2021-08-14 16:42] VITALS: BP 125/79; PULSE 109; RESP 24; TEMP 37.1; O2SAT 100
[2021-08-14 17:11] LABS: Add Manual Diff / Slide Review NO; Basophils Absolute Auto 100 /uL (0-100); Basophils Percent Auto 1.2 % (0-2); Eosinophils Absolute Auto 200 /uL (0-450); Hematocrit 25.4 % (36-46); Hemoglobin 8.6 g/dL (12.0-16.0); Lymphocytes Absolute Auto 1800 /uL (1100-4500); Lymphocytes Percent Auto 35.7 % (25-40); Mean Corpuscular HGB Conc 33.8 % (30-36); Mean Corpuscular Volume 62.1 fL (80-100); Monocytes Absolute Auto 200 /uL (0-900); Monocytes Percent Auto 3.4 % (3-14); Neutrophils Absolute Auto 2900 /uL (1500-7000); Neutrophils Percent Auto 56.7 % (50-75); Platelet Count 324 X10^3/uL (150-400); Red Cell Distribution Width 17.9 % (11.6-14.8); White Blood Cell Count 5.2 X10^3/uL (4.5-11.0)
[2021-08-14 17:32] LABS: Alanine Aminotransferase 20 IU/L (<35); Albumin 4.3 g/dL (3.5-5.0); Albumin Globulin Ratio 1.6 (1.0-2.8); Alkaline Phosphatase 48 U/L (38-126); Aspartate Aminotransferase 32 IU/L (14-36); BUN Creatinine Ratio 12.5 (6-22); Bilirubin Total 0.4 mg/dL (0.2-1.3); Blood Urea Nitrogen 8 mg/dL (7-17); Calcium 9.9 mg/dL (8.4-10.2); Carbon Dioxide 25 mmol/L (22-32); Chloride 111 mmol/L (98-107); Estimated Glomerular Filt Rate > 60.0 mL/min (>60); Globulin 2.7 g/dL (1.7-4.1); Glucose 98 mg/dL (70-100); Sodium 141 mmol/L (137-145)
[2021-08-14 17:34] LABS: HEMOLYSIS 64 (0-50); Lipase 285 U/L (23-300)
[2021-08-14 17:35] LABS: Potassium 3.9 mmol/L (3.4-5.1)
--- NOTE | 2021-08-14 17:41 | ED_ITS ---
HPI - Abdominal Pain <Familia Zambrano PA-C - Last Filed: 08/15/21 14:48> General Chief Complaint: Abdominal Pain Stated Complaint: abd pain getting worse Time Seen by Provider: 08/14/21 16:54 Source: patient Mode of arrival: Ambulatory History of Present Illness HPI narrative: Patient is a 30-year-old female presenting to the emergency department today for an evaluation abdominal pain. Patient states that her abdominal pain began over 1 week ago, and she explains that she was seen in the emergency department on 08/07/2021 for her pain. 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 She explains that she has experienced worsening pain since that time and has also experienced nausea and vomiting. Patient states that she has a follow-up appointment with her primary care provider on 08/21/2021 but she explains that she felt she needed to be seen sooner. She denies fever, chills, chest pain, cough, shortness of breath, diarrhea, constipation, dysuria, hematuria, or any other concerning symptoms. No other concerns are voiced at this time. CT scan obtained on 08/07/2021 did not show definite acute intra-abdominal abnormality. Related Data Home Medications Medication Instructions Recorded Confirmed alprazolam 1 mg tablet 1 mg PO TID PRN 07/15/21 07/15/21 quetiapine 200 mg tablet 200 mg PO BEDTIME 07/15/21 07/15/21 zolpidem 10 mg tablet 10 mg PO BEDTIME PRN 07/15/21 07/15/21 Previous Rx's Medication Instructions Recorded hydrocodone 5 mg-acetaminophen 325 1 tab PO Q6H PRN #8 tab 08/07/21 mg tablet ondansetron 4 mg disintegrating 4 mg PO Q6HR PRN #10 tab 08/07/21 tablet dicyclomine 10 mg capsule 10 mg PO TID #30 cap 08/14/21 famotidine 40 mg tablet (Pepcid) 40 mg PO BEDTIME #14 tab 08/16/21 metoclopramide HCl 10 mg 10 mg PO Q6H #14 tab 08/16/21 disintegrating tablet Allergies Allergy/AdvReac Type Severity Reaction Status Date / Time cephalexin [From Keflex] Allergy Hives Verified 07/15/21 16:59 ketorolac [From Toradol] Allergy ITCHING Verified 07/15/21 16:59 latex Allergy Verified 07/15/21 16:59 tramadol Allergy Hives Verified 08/07/21 15:42 Review of Systems <Familia Zambrano PA-C - Last Filed: 08/15/21 14:48> Constitutional Constitutional: Denies chills, Denies fatigue, Denies fever(s), Denies frequent falls, Denies lethargy and Denies weakness Eyes Eyes: Denies loss of vision ENT Ears, Nose, Mouth, and Throat: Denies change in voice, Denies dizziness, Denies neck pain, Denies sore throat and Denies throat swelling Cardiovascular Cardiovascular: Denies chest pain, Denies irregular heart rhythm, Denies lightheadedness, Denies palpitations, Denies dyspnea, Denies dyspnea on exertion and Denies orthopnea Respiratory Respiratory: Denies cough, Denies dyspnea, Denies dyspnea on exertion and Denies wheezing Gastrointestinal Gastrointestinal: Reports abdominal pain (Right upper quadrant, left upper quadrant), Denies change in bowel habits, Denies diarrhea, Reports nausea and Reports vomiting Genitourinary Genitourinary: Denies hematuria, Denies flank pain, Denies urinary incontinence and Denies urinary urgency Musculoskeletal Musculoskeletal: Denies back pain, Denies muscle weakness, Denies neck pain, Denies numbness and Denies tingling Integumentary/Breasts Skin/Breast: Denies pruritus, Denies erythema, Denies rash and Denies wounds Neurologic Neurologic: Denies behavioral changes, Denies confusion, Denies dizziness, Denies frequent falls, Denies loss of vision, Denies numbness, Denies tingling and Denies weakness Psychiatric Psychiatric: Denies behavioral changes and Denies confusion Endocrine Endocrine: Denies fatigue and Denies palpitations Allergic/Immunologic Allergic/Immunologic: Denies throat swelling and Denies wheezing Patient History <Familia Zambrano PA-C - Last Filed: 08/15/21 14:48> Medical History Anemia Social History Smoking Status: Current every day smoker Smoking Status: Current every day smoker tobacco type: cigarettes Substance Use Type: does not use Exam <Familia Zambrano PA-C - Last Filed: 08/15/21 14:48> Narrative Exam Narrative: GENERAL: 30 year old patient appears stated age. Well-developed patient, in mild distress. HEAD: Atraumatic. Normocephalic. EYES: Pupils equal round and reactive. Extraocular motions intact. No scleral icterus. No injection or drainage. ENT: Nose without bleeding, purulent drainage. Throat without erythema, tonsillar hypertrophy or exudate. Airway patent. NECK: Trachea midline. Non tender CARDIOVASCULAR: Regular rate and rhythm without murmurs, gallops, or rubs. RESPIRATORY: Clear to auscultation. Breath sounds equal bilaterally. No wheezes, rales, or rhonchi. GASTROINTESTINAL: Abdomen soft, nondistended. Tenderness to palpation appreciated in the right upper left upper quadrants of the abdomen. No masses noted. EXTREMITIES: No edema or joint tenderness. BACK: Nontender without deformity or crepitance. No flank tenderness. NEURO: AOx3. SKIN: No rash or erythema of visible areas Initial Vital Signs Initial Vital Signs: Vital Signs Temperature 98.7 F 08/14/21 16:42 Pulse Rate 109 H 08/14/21 16:42 Respiratory Rate 24 08/14/21 16:42 Blood Pressure 125/79 08/14/21 16:42 Pulse Oximetry 100 08/14/21 16:42 <Marisol Wolf MD - Last Filed: 08/21/21 07:36> Initial Vital Signs Initial Vital Signs: Vital Signs Temperature 98.7 F 08/14/21 16:42 Pulse Rate 109 H 08/14/21 16:42 Respiratory Rate 24 08/14/21 16:42 Blood Pressure 125/79 08/14/21 16:42 Pulse Oximetry 100 08/14/21 16:42 Course <Familia Zambrano PA-C - Last Filed: 08/15/21 14:48> Course Course Narrative: CBC, CMP, lipase, urine dipstick ordered. Orders Ordered: Discontinued Medications Dicyclomine HCl (Dicyclomine 10 Mg Capsule) 20 mg PO NOW ONE Stop: 08/14/21 19:10 Last Admin: 08/14/21 19:40 Dose: Not Given Documented by: BSMEN Sodium Chloride (Normal Saline 0.9%) 1,000 mls @ 1,000 mls/hr IV BOLUS ONE Stop: 08/14/21 19:09 Last Infusion: 08/14/21 19:30 Dose: 0 mls/hr Documented by: Admin: 08/14/21 18:24 Dose: 1,000 mls/hr Documented by: CONNOR Naproxen (Naproxen 250 Mg Tablet) 500 mg PO NOW ONE Stop: 08/14/21 18:12 Last Admin: 08/14/21 18:24 Dose: 500 mg Documented by: CONNOR Ondansetron HCl (Ondansetron 4 Mg Odt) 8 mg PO NOW ONE Stop: 08/14/21 17:46 Last Admin: 08/14/21 17:47 Dose: 4 mg Documented by: CONNOR Vital Signs Vital signs: Vital Signs - 8 hr 08/14/21 16:42 Temperature 98.7 F Pulse Rate 109 H Respiratory Rate 24 Blood Pressure 125/79 Pulse Oximetry 100 <Marisol Wolf MD - Last Filed: 08/21/21 07:36> Orders Ordered: Discontinued Medications Dicyclomine HCl (Dicyclomine 10 Mg Capsule) 20 mg PO NOW ONE Stop: 08/14/21 19:10 Last Admin: 08/14/21 19:40 Dose: Not Given Documented by: CONNOR Sodium Chloride (Normal Saline 0.9%) 1,000 mls @ 1,000 mls/hr IV BOLUS ONE Stop: 08/14/21 19:09 Last Infusion: 08/14/21 19:30 Dose: 0 mls/hr Documented by: Admin: 08/14/21 18:24 Dose: 1,000 mls/hr Documented by: CONNOR Naproxen (Naproxen 250 Mg Tablet) 500 mg PO NOW ONE Stop: 08/14/21 18:12 Last Admin: 08/14/21 18:24 Dose: 500 mg Documented by: CONNOR Ondansetron HCl (Ondansetron 4 Mg Odt) 8 mg PO NOW ONE Stop: 08/14/21 17:46 Last Admin: 08/14/21 17:47 Dose: 4 mg Documented by: CONNOR Vital Signs Vital signs: Vital Signs - 8 hr 08/14/21 16:42 Temperature 98.7 F Pulse Rate 109 H Respiratory Rate 24 Blood Pressure 125/79 Pulse Oximetry 100 MDM - Abdominal Pain <Familia Zambrano PA-C - Last Filed: 08/15/21 14:48> Lab Data Result diagrams: 08/14/21 17:01 08/14/21 17:01 Labs: Lab Results 08/14/21 08/14/21 Range/Units 17:01 17:01 WBC 5.2 (4.5-11.0) X10^3/uL RBC 4.10 (4.0-5.2) X10^6/uL Hgb 8.6 L (12.0-16.0) g/dL Hct 25.4 L (36-46) % MCV 62.1 L (80-100) fL MCH 21.0 L (26-34) PG MCHC 33.8 (30-36) % RDW 17.9 H (11.6-14.8) % Plt Count 324 (150-400) X10^3/uL Neut % (Auto) 56.7 (50-75) % Lymph % (Auto) 35.7 (25-40) % [place] % (Auto) 3.4 (3-14) % Eos % (Auto) 3.0 (2-4) % Baso % (Auto) 1.2 (0-2) % Neut # (Auto) 2900 (8538-5799) /uL Lymph # (Auto) 1800 (4291-1638) /uL [place] # (Auto) 200 (0-900) /uL Eos # (Auto) 200 (0-450) /uL Baso # (Auto) 100 (0-100) /uL RBC Morphology See below Polychromasia 1+ H Poikilocytosis 1+ H Anisocytosis 1+ H Microcytosis 2+ H Ovalocytes 1+ H Sodium 141 (137-145) mmol/L Potassium 3.9 (3.4-5.1) mmol/L Chloride 111 H (98-107) mmol/L Carbon Dioxide 25 (22-32) mmol/L BUN 8 (7-17) mg/dL Creatinine 0.64 (0.52-1.04) mg/dL Estimated GFR > 60.0 (>60) mL/min BUN/Creatinine Ratio 12.5 (6-22) Glucose 98 (70-100) mg/dL Calcium 9.9 (8.4-10.2) mg/dL Total Bilirubin 0.4 (0.2-1.3) mg/dL AST 32 (14-36) IU/L ALT 20 (<35) IU/L Alkaline Phosphatase 48 (38-126) U/L Total Protein 7.0 (6.3-8.2) g/dL Albumin 4.3 (3.5-5.0) g/dL Globulin 2.7 (1.7-4.1) g/dL Albumin/Globulin Ratio 1.6 (1.0-2.8) Lipase 285 D (23-300) U/L Point of care testing: Point of Care Testing Test Results Negative Urine Dip Bedside Urine Glucose Negative Bedside Urine Bilirubin - Negative Bedside Urine Ketone - Negative Urine Specific [place] 1.025 Bedside Urine Occult Blood - Negative Bedside Urine pH 6.0 Bedside Urine Protein - Negative Bedside Urine Urobilinogen - Negative Bedside Urine Nitrite - Negative Bedside Urine Leukocytes - Negative Esterase ECG Data Interpretation: Rate of 103 beats per minute, KS interval 150 ms, sinus tachycardia MDM Narrative Medical decision making narrative: To consider endometriosis versus cholelithiasis versus choledocholithiasis versus cholecystitis versus gastroenteritis versus appendicitis. Overall physical examination, history, and prior imaging reassuring. CT scan on 08/07/2021 did not show definite acute intra-abdominal abnormality. Patient understands plan and agrees to discharge. Strict return precautions were discussed prior to discharge. <Marisol Wolf MD - Last Filed: 08/21/21 07:36> Lab Data Labs: Lab Results 08/14/21 08/14/21 Range/Units 17:01 17:01 WBC 5.2 (4.5-11.0) X10^3/uL RBC 4.10 (4.0-5.2) X10^6/uL Hgb 8.6 L (12.0-16.0) g/dL Hct 25.4 L (36-46) % MCV 62.1 L (80-100) fL MCH 21.0 L (26-34) PG MCHC 33.8 (30-36) % RDW 17.9 H (11.6-14.8) % Plt Count 324 (150-400) X10^3/uL Neut % (Auto) 56.7 (50-75) % Lymph % (Auto) 35.7 (25-40) % [place] % (Auto) 3.4 (3-14) % Eos % (Auto) 3.0 (2-4) % Baso % (Auto) 1.2 (0-2) % Neut # (Auto) 2900 (5355-0214) /uL Lymph # (Auto) 1800 (6608-5610) /uL [place] # (Auto) 200 (0-900) /uL Eos # (Auto) 200 (0-450) /uL Baso # (Auto) 100 (0-100) /uL RBC Morphology See below Polychromasia 1+ H Poikilocytosis 1+ H Anisocytosis 1+ H Microcytosis 2+ H Ovalocytes 1+ H Sodium 141 (137-145) mmol/L Potassium 3.9 (3.4-5.1) mmol/L Chloride 111 H (98-107) mmol/L Carbon Dioxide 25 (22-32) mmol/L BUN 8 (7-17) mg/dL Creatinine 0.64 (0.52-1.04) mg/dL Estimated GFR > 60.0 (>60) mL/min BUN/Creatinine Ratio 12.5 (6-22) Glucose 98 (70-100) mg/dL Calcium 9.9 (8.4-10.2) mg/dL Total Bilirubin 0.4 (0.2-1.3) mg/dL AST 32 (14-36) IU/L ALT 20 (<35) IU/L Alkaline Phosphatase 48 (38-126) U/L Total Protein 7.0 (6.3-8.2) g/dL Albumin 4.3 (3.5-5.0) g/dL Globulin 2.7 (1.7-4.1) g/dL Albumin/Globulin Ratio 1.6 (1.0-2.8) Lipase 285 D (23-300) U/L Point of care testing: Point of Care Testing Test Results Negative Urine Dip Bedside Urine Glucose Negative Bedside Urine Bilirubin - Negative Bedside Urine Ketone - Negative Urine Specific [place] 1.025 Bedside Urine Occult Blood - Negative Bedside Urine pH 6.0 Bedside Urine Protein - Negative Bedside Urine Urobilinogen - Negative Bedside Urine Nitrite - Negative Bedside Urine Leukocytes - Negative Esterase Discharge Plan Departure Patient Disposition: Home Clinical Impression: Abdominal pain Instructions: DI for Abdominal Pain-Adult Activity Restrictions/Additional Instructions: *You have been diagnosed with abdominal pain *What to do: *Please continue to take your regular medications as directed. [X] New medication prescriptions sent to your pharmacy: [facility] [ ] New medication written as a paper prescription [ ] No new medications given *Please follow up with your primary care provider in 2-3 days, call for an appointment. Let them know you were seen in the Emergency Department and that we ask that you be seen in follow up. We will electronically transmit a record of today's note if your PCP is in our system *If you do not have a primary care provider please contact the [facility] Resource line at [phone]. They will ask some questions about your medical history and help get you set up with a doctor in the community. *Return to Emergency Department if you should have any new, worsening or concerning symptoms, such as fever greater than 101 F, shaking chills, worsening pain, persistent vomiting or other bothersome symptoms.; Prescriptions: New dicyclomine 10 mg capsule 10 mg PO TID Qty: 30 0RF No Action alprazolam 1 mg tablet 1 mg PO TID PRN (Reason: Anxiety) 0RF Label Comments: TAKE 1 TABLET BY MOUTH THREE TIMES DAILY NEEDED FOR SEVERE ANXIETY quetiapine 200 mg tablet 200 mg PO BEDTIME 0RF Label Comments: TAKE 1 TABLET BY MOUTH AT BEDTIME zolpidem 10 mg tablet 10 mg PO BEDTIME PRN (Reason: Insomnia) 0RF Label Comments: TAKE 1 TABLET BY MOUTH EVERY DAY AT BEDTIME hydrocodone-acetaminophen 5-325 mg tablet 1 tab PO Q6H PRN (Reason: pain) Qty: 8 0RF ondansetron 4 mg tablet,disintegrating 4 mg PO Q6HR PRN (Reason: nausea and vomiting) Qty: 10 0RF metoclopramide HCl 10 mg tablet,disintegrating 10 mg PO Q6H Qty: 14 0RF famotidine [Pepcid] 40 mg tablet 40 mg PO BEDTIME Qty: 14 0RF <Marisol Wolf MD - Last Filed: 08/21/21 07:36> [facility] I was immediately available in the department for consultation throughout this patient's visit. I agree with documentation as above. Marisol Wolf MD
[2021-08-14 17:47] LABS: Anisocytosis 1+; Microcytosis 2+; Ovalocytes 1+; Poikilocytosis 1+; Polychromasia 1+
[2021-08-14] MEDS: ONDANSETRON 4 MG ODT 8 MG PO (17:47)
[2021-08-14] MEDS: NAPROXEN 250 MG TABLET 500 MG PO (18:24)
[2021-08-14] MEDS: SODIUM CHLORIDE 0.9% 1,000 ML 1000 ML IV (18:24)
[2021-08-14 19:33] VITALS: BP 126/80; PULSE 100; RESP 16; O2SAT 100
== END 2021-08-14 19:33 | disposition home or self-care (01) ==
PROVIDERS: Emergency Medicine; Emergency Provider Physician Assistant
DX: R10.10 Upper abdominal pain, unspecified (principal); R11.2 Nausea with vomiting, unspecified; R00.0 Tachycardia, unspecified
CPT/HCPCS: 36415; 80053; 81003; 81025; 83690; 85025; 93005; 96360; 99284

== ENCOUNTER 2021-08-16 16:44 | Emergency (ER) | payer OTHER, MEDICAID, SELFPAY ==
[2021-08-16 16:53] VITALS: BP 127/59; PULSE 102; RESP 20; TEMP 36.8; O2SAT 100; BMI 27.8
[2021-08-16] MEDS: SODIUM CHLORIDE 0.9% 1,000 ML 1000 ML IV (17:57)
[2021-08-16] MEDS: ONDANSETRON 4 MG/2 ML INJ IV (17:57)
[2021-08-16 17:58] LABS: Add Manual Diff / Slide Review NO; Basophils Absolute Auto 0 /uL (0-100); Basophils Percent Auto 0.7 % (0-2); Eosinophils Absolute Auto 200 /uL (0-450); Eosinophils Percent Auto 3.7 % (2-4); Hematocrit 24.3 % (36-46); Hemoglobin 7.5 g/dL (12.0-16.0); Lymphocytes Absolute Auto 1800 /uL (1100-4500); Lymphocytes Percent Auto 44.3 % (25-40); Mean Corpuscular HGB Conc 30.8 % (30-36); Mean Corpuscular Hemoglobin 19.1 PG (26-34); Monocytes Absolute Auto 200 /uL (0-900); Monocytes Percent Auto 4.4 % (3-14); Neutrophils Absolute Auto 1900 /uL (1500-7000); Neutrophils Percent Auto 46.9 % (50-75); Platelet Count 277 X10^3/uL (150-400); Red Blood Cell Count 3.92 X10^6/uL (4.0-5.2); Red Cell Distribution Width 17.7 % (11.6-14.8); White Blood Cell Count 4.1 X10^3/uL (4.5-11.0)
[2021-08-16 18:08] LABS: Alanine Aminotransferase 21 IU/L (<35); Albumin 4.2 g/dL (3.5-5.0); Albumin Globulin Ratio 1.6 (1.0-2.8); Alkaline Phosphatase 57 U/L (38-126); Aspartate Aminotransferase 27 IU/L (14-36); BUN Creatinine Ratio 11.4 (6-22); Bilirubin Total 0.3 mg/dL (0.2-1.3); Blood Urea Nitrogen 8 mg/dL (7-17); Carbon Dioxide 27 mmol/L (22-32); Chloride 110 mmol/L (98-107); Estimated Glomerular Filt Rate > 60.0 mL/min (>60); Globulin 2.6 g/dL (1.7-4.1); Glucose 104 mg/dL (70-100); HEMOLYSIS < 15 (0-50); Lipase 189 U/L (23-300); Potassium 3.4 mmol/L (3.4-5.1); Sodium 143 mmol/L (137-145); Total Protein 6.8 g/dL (6.3-8.2)
[2021-08-16 18:20] LABS: Anisocytosis 1+; Hypochromasia 1+; Ovalocytes 1+
--- NOTE | 2021-08-16 18:30 | ED.ABDPAIN ---
HPI - Abdominal Pain General Chief Complaint: Abdominal Pain Stated Complaint: ABDOMINAL PAIN Time Seen by Provider: 08/16/21 18:19 Source: patient Mode of arrival: Ambulatory History of Present Illness HPI narrative: Patient is a 30-year-old female who presents for the 3rd time 08/07/2021 with epigastric pain. She says it has been constant the last 2 weeks. She vomits most every day today she threw up 4 times. Pain is nonradiating, she has gabapentin and pain medication home. She denies any flank pain. No fever or chills. No chest pain palpitations or shortness of breath. Had any diarrhea. He is tired of the pain. She has been seen by her PCP. Pain has continued. She previously thought she was she had had a home test a in JuneJuly 15 she had a ultrasound did which did not show any IUP. She has since had multiple negative urine test and a negative HCG in the emergency department. She has no lower abdominal pain. She is known to be anemic as well. Related Data Home Medications Medication Instructions Recorded Confirmed alprazolam 1 mg tablet 1 mg PO TID PRN 07/15/21 07/15/21 quetiapine 200 mg tablet 200 mg PO BEDTIME 07/15/21 07/15/21 zolpidem 10 mg tablet 10 mg PO BEDTIME PRN 07/15/21 07/15/21 Previous Rx's Medication Instructions Recorded hydrocodone 5 mg-acetaminophen 325 1 tab PO Q6H PRN #8 tab 08/07/21 mg tablet ondansetron 4 mg disintegrating 4 mg PO Q6HR PRN #10 tab 08/07/21 tablet dicyclomine 10 mg capsule 10 mg PO TID #30 cap 08/14/21 famotidine 40 mg tablet (Pepcid) 40 mg PO BEDTIME #14 tab 08/16/21 metoclopramide HCl 10 mg 10 mg PO Q6H #14 tab 08/16/21 disintegrating tablet Allergies Allergy/AdvReac Type Severity Reaction Status Date / Time cephalexin [From Keflex] Allergy Hives Verified 07/15/21 16:59 ketorolac [From Toradol] Allergy ITCHING Verified 07/15/21 16:59 latex Allergy Verified 07/15/21 16:59 tramadol Allergy Hives Verified 08/07/21 15:42 Review of Systems Review of Systems Narrative: GENERAL: Denies chills, fatigue, malaise, fever, sweats, travel HEENT: Denies sinus pain, ear pain, sore throat, difficulty swallowing, neck pain RESPIRATORY: Denies dyspnea, cough, wheezing, hemoptysis, sputum. CARDIOVASCULAR: Denies chest pain, palpitations, orthopnea, edema GASTROINTESTINAL: See HPI : Denies dysuria, frequency, incontinence, hematuria, urinary retention, flank pain. MUSCULOSKELETAL: Denies weakness, joint pain, or bony pain SKIN: No rash, no erythema, no pruritus NEUROLOGIC: Denies weakness, dizziness, headache, numbness, change in speech, confusion PSYCHIATRIC: No concerning psychosocial issues. 12 point review of systems is negative except for those stated above and HPI Patient History Medical History Anemia Social History Smoking Status: Current every day smoker Smoking Status: Current every day smoker tobacco type: cigarettes Substance Use Type: does not use Exam Initial Vital Signs Initial Vital Signs: Vital Signs Temperature 98.2 F 08/16/21 16:53 Pulse Rate 102 H 08/16/21 16:53 Respiratory Rate 20 08/16/21 16:53 Blood Pressure 127/59 L 08/16/21 16:53 Pulse Oximetry 100 08/16/21 16:53 GENERAL: Alert 30-year-old female appears in pain HEENT: Head atraumatic,EOMI, pupils reactive, face symmetric, moist mucous membranes CARDIOVASCULAR: Regular rate and rhythm without murmurs, rubs or gallops. RESPIRATORY: Breath sounds equal bilaterally, no wheezes rales or rhonchi. ABDOMEN: Soft, epigastric pain, positive Kramer sign : No CVA tenderness EXTREMITIES: Normal range of motion, no clubbing or edema. Neurovascularly intact NEUROLOGICAL: Alert and oriented x4.Normal gait and speech. SKIN: Warm, dry, no laceration, no petechiae, no rashes or lesions. Course Orders Ordered: ED Orders 08/16/21 17:30 Test Urine Stat Urinalysis and Microscopic Stat Urine Culture Stat Urine Drug Screen, Rapid Stat 08/16/21 17:45 Complete Blood Count AUTO DIFF Stat Comprehensive Metabolic Panel Stat Lipase Stat 08/16/21 18:31 US abdomen limited Stat Discontinued Medications Hydrocodone Bitart/Acetaminophen (Hydrocodone/Acet 5/325 Tablet) 1 tab PO NOW ONE Stop: 08/16/21 21:22 Last Admin: 08/16/21 21:25 Dose: 1 tab Documented by: JERSEY Hydrocodone Bitart/Acetaminophen (Hydrocodone/Acet 5/325 Prepack) 1 bottle MISC SEEINSTR ONE Stop: 08/16/21 21:22 Last Admin: 08/16/21 21:25 Dose: 1 bottle Documented by: JERSEY Hydromorphone HCl (Hydromorphone 1 Mg Inj) 1 mg IV NOW ONE Stop: 08/16/21 18:32 Last Admin: 08/16/21 18:36 Dose: 1 mg Documented by: JERSEY Hydromorphone HCl (Hydromorphone 1 Mg Inj) 1 mg IV NOW ONE Stop: 08/16/21 20:12 Last Admin: 08/16/21 20:20 Dose: 1 mg Documented by: JERSEY Sodium Chloride (Normal Saline 0.9%) 1,000 mls @ 1,000 mls/hr IV BOLUS ONE Stop: 08/16/21 18:51 Last Infusion: 08/16/21 19:48 Dose: 0 mls/hr Documented by: Admin: 08/16/21 17:57 Dose: 1,000 mls/hr Documented by: AGNES Ondansetron HCl (Ondansetron 4 Mg/2 Ml Inj) 4 mg IV NOW ONE Stop: 08/16/21 17:53 Last Admin: 08/16/21 17:57 Dose: 4 mg Documented by: AGNES Pantoprazole Sodium (Pantoprazole 40 Mg Vial) 40 mg IV NOW ONE Stop: 08/16/21 18:33 Last Admin: 08/16/21 18:57 Dose: 40 mg Documented by: JERESY Vital Signs Vital signs: Vital Signs - 8 hr 08/16/21 16:53 08/16/21 21:22 Temperature 98.2 F Pulse Rate 102 H 82 Respiratory Rate 20 Blood Pressure 127/59 L 109/68 Pulse Oximetry 100 99 MDM - Abdominal Pain Lab Data Result diagrams: 08/16/21 17:45 08/16/21 17:45 Labs: Lab Results 08/16/21 08/16/21 08/16/21 Range/Units 17:30 17:30 17:30 WBC (4.5-11.0) X10^3/uL RBC (4.0-5.2) X10^6/uL Hgb (12.0-16.0) g/dL Hct (36-46) % MCV (80-100) fL MCH (26-34) PG MCHC (30-36) % RDW (11.6-14.8) % Plt Count (150-400) X10^3/uL Neut % (Auto) (50-75) % Lymph % (Auto) (25-40) % [place] % (Auto) (3-14) % Eos % (Auto) (2-4) % Baso % (Auto) (0-2) % Neut # (Auto) (1114-9851) /uL Lymph # (Auto) (3595-8200) /uL [place]oard # (Auto) (0-900) /uL Eos # (Auto) (0-450) /uL Baso # (Auto) (0-100) /uL RBC Morphology Hypochromasia Anisocytosis Ovalocytes Sodium (137-145) mmol/L Potassium (3.4-5.1) mmol/L Chloride (98-107) mmol/L Carbon Dioxide (22-32) mmol/L BUN (7-17) mg/dL Creatinine (0.52-1.04) mg/dL Estimated GFR (>60) mL/min BUN/Creatinine Ratio (6-22) Glucose (70-100) mg/dL Calcium (8.4-10.2) mg/dL Total Bilirubin (0.2-1.3) mg/dL AST (14-36) IU/L ALT (<35) IU/L Alkaline Phosphatase (38-126) U/L Total Protein (6.3-8.2) g/dL Albumin (3.5-5.0) g/dL Globulin (1.7-4.1) g/dL Albumin/Globulin Ratio (1.0-2.8) Lipase (23-300) U/L Urine Color Red Urine Appearance Cloudy Urine pH 6.5 (4.5-8.0) Ur Specific [place] 1.025 (1.000-1.035) Urine Protein 2+ H (Negative) Urine Glucose (UA) Negative (Negative) g/dL Urine Ketones Trace H (NEGATIVE) Urine Occult Blood 3+ H (Negative) Urine Nitrate Negative (Negative) Urine Bilirubin Negative (NEGATIVE) Urine Urobilinogen 0.2 (0.2) E.U./dL Ur Leukocyte Esterase Trace H (NEGATIVE) Urine RBC 30-100/hpf H (0-5/HPF) Urine WBC 1-5/hpf (0-5/HPF) Ur Squamous Epith Cells 1-5 /hpf (0-5/HPF) Urine Bacteria Moderate (10-30) H (None) Ur Culture Indicated? Specimen cultured Urine Test Negative (Negative) U Opiates 300ng/mL cut Negative (Negative) Ur Oxycodone Screen Negative (Negative) Urine Methadone Screen Negative (Negative) Ur Barbiturates Screen Negative (Negative) U Tricyclic Antidepress Positive H (Negative) Ur Phencyclidine Scrn Negative (Negative) Ur Amphetamines Screen Negative (Negative) U Methamphetamines Scrn Negative (Negative) Ur MDMA Scrn (Ecstasy) Negative (Negative) U Benzodiazepines Scrn Positive H (Negative) Urine Cocaine Screen Negative (Negative) U Marijuana (THC) Screen Negative (Negative) 08/16/21 08/16/21 Range/Units 17:45 17:45 WBC 4.1 L (4.5-11.0) X10^3/uL RBC 3.92 L (4.0-5.2) X10^6/uL Hgb 7.5 L (12.0-16.0) g/dL Hct 24.3 L (36-46) % MCV 62.0 L (80-100) fL MCH 19.1 L (26-34) PG MCHC 30.8 (30-36) % RDW 17.7 H (11.6-14.8) % Plt Count 277 (150-400) X10^3/uL Neut % (Auto) 46.9 L (50-75) % Lymph % (Auto) 44.3 H (25-40) % [place] % (Auto) 4.4 (3-14) % Eos % (Auto) 3.7 (2-4) % Baso % (Auto) 0.7 (0-2) % Neut # (Auto) 1900 (8164-7594) /uL Lymph # (Auto) 1800 (6627-4692) /uL [place] # (Auto) 200 (0-900) /uL Eos # (Auto) 200 (0-450) /uL Baso # (Auto) 0 (0-100) /uL RBC Morphology Not Reportable Hypochromasia 1+ H Anisocytosis 1+ H Ovalocytes 1+ H Sodium 143 (137-145) mmol/L Potassium 3.4 (3.4-5.1) mmol/L Chloride 110 H (98-107) mmol/L Carbon Dioxide 27 (22-32) mmol/L BUN 8 (7-17) mg/dL Creatinine 0.70 (0.52-1.04) mg/dL Estimated GFR > 60.0 (>60) mL/min BUN/Creatinine Ratio 11.4 (6-22) Glucose 104 H (70-100) mg/dL Calcium 9.0 (8.4-10.2) mg/dL Total Bilirubin 0.3 (0.2-1.3) mg/dL AST 27 (14-36) IU/L ALT 21 (<35) IU/L Alkaline Phosphatase 57 (38-126) U/L Total Protein 6.8 (6.3-8.2) g/dL Albumin 4.2 (3.5-5.0) g/dL Globulin 2.6 (1.7-4.1) g/dL Albumin/Globulin Ratio 1.6 (1.0-2.8) Lipase 189 (23-300) U/L Urine Color Urine Appearance Urine pH (4.5-8.0) Ur Specific [place] (1.000-1.035) Urine Protein (Negative) Urine Glucose (UA) (Negative) g/dL Urine Ketones (NEGATIVE) Urine Occult Blood (Negative) Urine Nitrate (Negative) Urine Bilirubin (NEGATIVE) Urine Urobilinogen (0.2) E.U./dL Ur Leukocyte Esterase (NEGATIVE) Urine RBC (0-5/HPF) Urine WBC (0-5/HPF) Ur Squamous Epith Cells (0-5/HPF) Urine Bacteria (None) Ur Culture Indicated? Urine Test (Negative) U Opiates 300ng/mL cut (Negative) Ur Oxycodone Screen (Negative) Urine Methadone Screen (Negative) Ur Barbiturates Screen (Negative) U Tricyclic Antidepress (Negative) Ur Phencyclidine Scrn (Negative) Ur Amphetamines Screen (Negative) U Methamphetamines Scrn (Negative) Ur MDMA Scrn (Ecstasy) (Negative) U Benzodiazepines Scrn (Negative) Urine Cocaine Screen (Negative) U Marijuana (THC) Screen (Negative) Imaging Data US - abdomen: Radiologist's Impression: PROCEDURE: US ABDOMEN LIMITED ? INDICATIONS:? ruq pain ? TECHNIQUE:? Real-time focused scanning was performed of the abdomen, with image documentation.? ? COMPARISON:? [facility], CT, CT ABDOMEN PELVIS W CON, 08/07/2021, 19:22. ? FINDINGS:? The liver is normal in size and mildly increased in echogenicity.? Hepatopetal flow is seen in the main portal vein. ? The gallbladder appears partially contracted, which may be secondary to the timing of the most recent meal or prior medication.? Gallbladder wall is borderline in thickness.? No shadowing gallstone is seen.? Sonographic Kramer sign is indeterminate as the patient has been medicated for pain. ? No intrahepatic or extrahepatic biliary ductal dilatation.? The visualized portions of the pancreas are within normal limits. ? IMPRESSION:? 1. Partially-contracted gallbladder without cholelithiasis or signs of acute cholecystitis. 2. No intrahepatic or extrahepatic biliary ductal dilatation. 3. Mildly increased hepatic echogenicity is seen, most commonly secondary to diffuse hepatic steatosis but other sources of hepatocellular disease cannot be excluded.? Recommend clinical correlation.? Dictated by: Alphonse Antunez M.D. on 08/16/2021 at 20:40 ? ? Approved by: Alphonse Antunez M.D. on 08/16/2021 at 20:43 ? MDM Narrative Medical decision making narrative: Patient has been having ongoing epigastric pain for about 2 weeks. She previously had CT blood work all which were negative. She continues to have it. Today tender in right upper quadrant ultrasound and blood work are still negative. Possible gastric ulcer. She is found to be anemic with a hemoglobin 7.5/24 however she has had this before previously hemoglobin wound was 8.6/25.4 She has requested multiple doses of Dilaudid. I have explained her that I will not be writing her a prescription medication for this. She says that she has to chew her pills she cannot swallow them hold so she is given Pepcid to take at bedtime to help with his acid reflux and possible ulcer. I recommend outpatient follow-up possible EGD. Discharge Plan Departure Patient Disposition: Home Clinical Impression: Abdominal pain Instructions: DI for Gastric Ulcer Activity Restrictions/Additional Instructions: *You have been diagnosed with abdominal pain *What to do: At this time needed outpatient EGD for possible ulcer. He will also need to see her primary care provider for any further pain medications. *Continue to take medications as directed Reglan 10 mg every 6 hours if needed for nausea or vomiting Pepcid 40 mg at night for 2 weeks *Follow up with your primary care provider in 2-3 days or call [phone] *Return to ER if you should have increasing pain, fever, any new, worsening or concerning symptoms Prescriptions: New metoclopramide HCl 10 mg tablet,disintegrating 10 mg PO Q6H Qty: 14 0RF famotidine [Pepcid] 40 mg tablet 40 mg PO BEDTIME Qty: 14 0RF No Action alprazolam 1 mg tablet 1 mg PO TID PRN (Reason: Anxiety) 0RF Label Comments: TAKE 1 TABLET BY MOUTH THREE TIMES DAILY NEEDED FOR SEVERE ANXIETY quetiapine 200 mg tablet 200 mg PO BEDTIME 0RF Label Comments: TAKE 1 TABLET BY MOUTH AT BEDTIME zolpidem 10 mg tablet 10 mg PO BEDTIME PRN (Reason: Insomnia) 0RF Label Comments: TAKE 1 TABLET BY MOUTH EVERY DAY AT BEDTIME hydrocodone-acetaminophen 5-325 mg tablet 1 tab PO Q6H PRN (Reason: pain) Qty: 8 0RF ondansetron 4 mg tablet,disintegrating 4 mg PO Q6HR PRN (Reason: nausea and vomiting) Qty: 10 0RF dicyclomine 10 mg capsule 10 mg PO TID Qty: 30 0RF
--- NOTE | 2021-08-16 18:31 | DI.US.S_ITS ---
PROCEDURE: US ABDOMEN LIMITED INDICATIONS: ruq pain TECHNIQUE: Real-time focused scanning was performed of the abdomen, with image documentation. COMPARISON: [facility], CT, CT ABDOMEN PELVIS W CON, 08/07/2021, 19:22. FINDINGS: The liver is normal in size and mildly increased in echogenicity. Hepatopetal flow is seen in the main portal vein. The gallbladder appears partially contracted, which may be secondary to the timing of the most recent meal or prior medication. Gallbladder wall is borderline in thickness. No shadowing gallstone is seen. Sonographic Kramer sign is indeterminate as the patient has been medicated for pain. No intrahepatic or extrahepatic biliary ductal dilatation. The visualized portions of the pancreas are within normal limits. IMPRESSION: 1. Partially-contracted gallbladder without cholelithiasis or signs of acute cholecystitis. 2. No intrahepatic or extrahepatic biliary ductal dilatation. 3. Mildly increased hepatic echogenicity is seen, most commonly secondary to diffuse hepatic steatosis but other sources of hepatocellular disease cannot be excluded. Recommend clinical correlation. Dictated by: Alphonse Antunez M.D. on 08/16/2021 at 20:40 Approved by: Alphonse Antunez M.D. on 08/16/2021 at 20:43
[2021-08-16] MEDS: HYDROMORPHONE 1 MG INJ IV ×2 (18:36→20:20)
[2021-08-16 18:48] LABS: Appearance Urine UA CLOUDY; Bilirubin Urine UA NEGATIVE (NEGATIVE); Color Urine UA RED; Glucose Urine UA NEGATIVE (Negative); Ketones Urine UA TRACE (NEGATIVE); Leukocyte Esterase Urine UA TRACE (NEGATIVE); Nitrite Urine UA NEGATIVE (Negative); Occult Blood Urine UA 3+ (Negative); Protein Urine UA 2+ (Negative); Specific Gravity Urine UA 1.025 (1.000-1.035); Urobilinogen Urine UA 0.2 E.U./dL (0.2)
[2021-08-16 18:49] LABS: pH Urine UA 6.5 (4.5-8.0)
[2021-08-16 18:54] LABS: Pregnancy Test Urine Negative (Negative); UR Morphine/Opiate cutoff 300 Negative (Negative); Ur Creatinine Normal (Normal); Ur Specific Gravity Normal (Normal); Urine Amphetamines Negative (Negative); Urine Barbiturates Negative (Negative); Urine Benzodiazepines Positive (Negative); Urine Cocaine Negative (Negative); Urine MDMA Negative (Negative); Urine Methadone Negative (Negative); Urine Methamphetamines Negative (Negative); Urine Phencyclidine Negative (Negative); Urine Tetrahydrocannabinol Negative (Negative); Urine pH Normal (Normal)
[2021-08-16 18:55] LABS: Urine Oxycodone Negative (Negative); Urine Tricyclic Antidepressant Positive (Negative)
[2021-08-16 18:57] LABS: Bacteria Urine Moderate (10-30); RBC Urine 30-100/HPF (0-5/HPF); Squamous Epithelial Cell Urine 1-5 /HPF (0-5/HPF); WBC Urine 1-5/HPF (0-5/HPF)
[2021-08-16] MEDS: PANTOPRAZOLE 40 MG VIAL IV (18:57)
[2021-08-16 18:58] LABS: Culture Indicated Urine Specimen Cultured
[2021-08-16 21:22] VITALS: BP 109/68; PULSE 82; O2SAT 99
[2021-08-16] MEDS: HYDROCODONE/ACET 5/325 TABLET 1 TAB PO (21:25)
[2021-08-16] MEDS: HYDROCODONE/ACET 5/325 PREPACK 1 BOTTLE MISC (21:25)
== END 2021-08-16 21:43 | disposition home or self-care (01) ==
PROVIDERS: Emergency Provider Emergency Medicine
DX: K25.9 Gastric ulcer, unspecified as acute or chronic, without hemorrhage or perforation (principal)
CPT/HCPCS: 36415; 76705; 80053; 80305; 81001; 81025; 83690; 85025; 87086; 96361; 96374; 96375; 96376; 99284; C9113; J1170; J2405

== ENCOUNTER 2021-09-04 16:13 | Emergency (ER) | payer OTHER, MEDICAID, SELFPAY ==
[2021-09-04 16:22] VITALS: BP 106/60; PULSE 106; RESP 18; TEMP 36.6; O2SAT 100; BMI 26.9
[2021-09-04] MEDS: ONDANSETRON 4 MG ODT SL (16:54)
[2021-09-04 17:22] LABS: Alanine Aminotransferase 21 IU/L (<35); Albumin 4.5 g/dL (3.5-5.0); Albumin Globulin Ratio 1.7 (1.0-2.8); Alkaline Phosphatase 57 U/L (38-126); Aspartate Aminotransferase 26 IU/L (14-36); Bilirubin Total 0.4 mg/dL (0.2-1.3); Blood Urea Nitrogen 12 mg/dL (7-17); Calcium 9.4 mg/dL (8.4-10.2); Carbon Dioxide 21 mmol/L (22-32); Chloride 110 mmol/L (98-107); Estimated Glomerular Filt Rate > 60.0 mL/min (>60); Globulin 2.7 g/dL (1.7-4.1); Glucose 111 mg/dL (70-100); HEMOLYSIS 20 (0-50); Lipase 229 U/L (23-300); Potassium 3.6 mmol/L (3.4-5.1); Sodium 140 mmol/L (137-145); Total Protein 7.2 g/dL (6.3-8.2)
--- NOTE | 2021-09-04 20:33 | ED_ITS ---
HPI - Abdominal Pain General Chief Complaint: Abdominal Pain Stated Complaint: right sided stomach pain,throwing up,stomach hard Time Seen by Provider: 09/04/21 19:58 Source: patient Mode of arrival: Ambulatory History of Present Illness HPI narrative: 30-year-old female daily smoker presents for recurrence of epigastric pain which has been present for many months. It is worse over the past few days. She states she has been vomiting or at least dry heaving since about 6:00 a.m. this morning. She denies any passage of blood or coffee-ground emesis. She has had no fever or chills. She has been seen by her primary care provider and has a referral to GI for a presumed ulcer. She states that she takes daily NSAIDs for treatment of various aches and pains including headaches. She denies any excessive alcohol use. She states her pain is worse when she moves it seems to improve with rest. She denies any radiation of her pain. This is similar in presentation to her prior visits per her own admission Related Data Home Medications Medication Instructions Recorded Confirmed alprazolam 1 mg tablet 1 mg PO TID PRN 07/15/21 07/15/21 quetiapine 200 mg tablet 200 mg PO BEDTIME 07/15/21 07/15/21 zolpidem 10 mg tablet 10 mg PO BEDTIME PRN 07/15/21 07/15/21 Previous Rx's Medication Instructions Recorded hydrocodone 5 mg-acetaminophen 325 1 tab PO Q6H PRN #8 tab 08/07/21 mg tablet ondansetron 4 mg disintegrating 4 mg PO Q6HR PRN #10 tab 08/07/21 tablet dicyclomine 10 mg capsule 10 mg PO TID #30 cap 08/14/21 famotidine 40 mg tablet (Pepcid) 40 mg PO BEDTIME #14 tab 08/16/21 metoclopramide HCl 10 mg 10 mg PO Q6H #14 tab 08/16/21 disintegrating tablet pantoprazole 40 mg tablet,delayed 40 mg PO DAILY #30 tab 09/05/21 release (Protonix) Allergies Allergy/AdvReac Type Severity Reaction Status Date / Time cephalexin [From Keflex] Allergy Hives Verified 09/04/21 16:25 ketorolac [From Toradol] Allergy ITCHING Verified 09/04/21 16:25 latex Allergy Verified 09/04/21 16:25 tramadol Allergy Hives Verified 09/04/21 16:25 Review of Systems Review of Systems Narrative: GENERAL: Denies chills, fatigue, malaise, fever, sweats. HEENT: Denies sinus pain, ear pain, sore throat, difficulty swallowing, dizziness. RESPIRATORY: Denies dyspnea, cough, wheezing, hemoptysis, sputum. CARDIOVASCULAR: Denies chest pain, palpitations, orthopnea, edema, GASTROINTESTINAL: See HPI : Denies dysuria, frequency, incontinence, hematuria, urinary retention. MUSCULOSKELETAL: denies weakness, joint pain, or bony pain SKIN: Denies rash, skin lesions, or other NEUROLOGIC: Denies weakness, headache, numbness, change in speech, confusion, seizures, incoordination. PSYCHIATRIC: No concerning psychosocial issues. 12 point review of systems is negative except for those stated above Patient History Medical History Anemia Social History Smoking Status: Current every day smoker Smoking Status: Current every day smoker tobacco type: cigarettes alcohol intake frequency: holidays/special occasions only Substance Use Type: does not use Exam Narrative Exam Narrative: GENERAL: [30 year old patient appears stated age. Well-developed patient, in mild distress. Obviously uncomfortable, tearful, lying on her side and holding an emesis bag HEAD: Atraumatic. Normocephalic. EYES: Pupils equal round and reactive. Extraocular motions intact. No scleral icterus. No injection or drainage. ENT: Nose without bleeding, purulent drainage. Throat without erythema, tonsillar hypertrophy or exudate. Airway patent. NECK: Trachea midline. Non tender CARDIOVASCULAR: Regular rate and rhythm without murmurs, gallops, or rubs. RESPIRATORY: Clear to auscultation. Breath sounds equal bilaterally. No wheezes, rales, or rhonchi. GASTROINTESTINAL: Abdomen soft, tender in the epigastrium and worse in the right upper quadrant, bowel sounds present EXTREMITIES: No edema or joint tenderness. BACK: Nontender without deformity or crepitance. No flank tenderness. NEURO: AOx3. SKIN: No rash or erythema of visible areas Initial Vital Signs Initial Vital Signs: Vital Signs Temperature 97.8 F 09/04/21 16:22 Pulse Rate 106 H 09/04/21 16:22 Respiratory Rate 18 09/04/21 16:22 Blood Pressure 106/60 09/04/21 16:22 Pulse Oximetry 100 09/04/21 16:22 Course Orders Ordered: Discontinued Medications Al Hydrox/Mg Hydrox/Simethicone 20 ml/ Lidocaine HCl 15 ml 0 ml PO NOW ONE Stop: 09/04/21 20:39 Last Admin: 09/04/21 21:18 Dose: 35 ml Documented by: SHERINE Hydromorphone HCl (Hydromorphone 1 Mg Inj) 1 mg IM NOW ONE Stop: 09/04/21 23:35 Last Admin: 09/04/21 23:41 Dose: 1 mg Documented by: CONNOR Ondansetron HCl (Ondansetron 4 Mg/2 Ml Inj) 4 mg IV NOW ONE Stop: 09/04/21 16:28 Last Admin: 09/04/21 16:54 Dose: Not Given Documented by: ALYSIA Ondansetron HCl (Ondansetron 4 Mg Odt) 4 mg SL NOW ONE Stop: 09/04/21 16:51 Last Admin: 09/04/21 16:54 Dose: 4 mg Documented by: ALYSIA Vital Signs Vital signs: Vital Signs - 8 hr 09/04/21 16:22 Temperature 97.8 F Pulse Rate 106 H Respiratory Rate 18 Blood Pressure 106/60 Pulse Oximetry 100 MDM - Abdominal Pain Lab Data Result diagrams: 09/04/21 20:37 09/04/21 16:43 Labs: Lab Results 09/04/21 09/04/21 09/04/21 Range/Units 16:43 20:37 21:30 WBC 10.6 (4.5-11.0) X10^3/uL RBC 4.14 (4.0-5.2) X10^6/uL Hgb 7.8 L (12.0-16.0) g/dL Hct 25.9 L (36-46) % MCV 62.5 L (80-100) fL MCH 18.9 L (26-34) PG MCHC 30.2 (30-36) % RDW 18.9 H (11.6-14.8) % Plt Count 311 (150-400) X10^3/uL Neut % (Auto) 56.6 (50-75) % Lymph % (Auto) 34.5 (25-40) % Sanders % (Auto) 4.1 (3-14) % Eos % (Auto) 3.5 (2-4) % Baso % (Auto) 1.3 (0-2) % Neut # (Auto) 6000 (5932-3589) /uL Lymph # (Auto) 3700 (5543-6720) /uL Sanders # (Auto) 400 (0-900) /uL Eos # (Auto) 400 (0-450) /uL Baso # (Auto) 100 (0-100) /uL RBC Morphology See below Anisocytosis 1+ H Microcytosis 2+ H Sodium 140 (137-145) mmol/L Potassium 3.6 (3.4-5.1) mmol/L Chloride 110 H (98-107) mmol/L Carbon Dioxide 21 L (22-32) mmol/L BUN 12 (7-17) mg/dL Creatinine 0.63 (0.52-1.04) mg/dL Estimated GFR > 60.0 (>60) mL/min BUN/Creatinine Ratio 19.0 (6-22) Glucose 111 H (70-100) mg/dL Calcium 9.4 (8.4-10.2) mg/dL Total Bilirubin 0.4 (0.2-1.3) mg/dL AST 26 (14-36) IU/L ALT 21 (<35) IU/L Alkaline Phosphatase 57 (38-126) U/L Total Protein 7.2 (6.3-8.2) g/dL Albumin 4.5 (3.5-5.0) g/dL Globulin 2.7 (1.7-4.1) g/dL Albumin/Globulin Ratio 1.7 (1.0-2.8) Lipase 229 (23-300) U/L Urine RBC 1-5/hpf D (0-5/HPF) Urine WBC 10-30/hpf H (0-5/HPF) Ur Squamous Epith Cells 5-10 /hpf H (0-5/HPF) Ur Transition Epith Cell 5-10/hpf H (0-5/HPF) Urine Bacteria Few (2-10) H (None) Urine Mucus 2+ H (Negative) Ur Culture Indicated? Culture not indicate Point of care testing: Point of Care Testing Test Results Negative Urine Dip Bedside Urine Glucose Negative Bedside Urine Bilirubin - Negative Bedside Urine Ketone - Negative Urine Specific Udall 1.030 Bedside Urine Occult Blood - Negative Bedside Urine pH 6.0 Bedside Urine Protein +/- 15 Bedside Urine Urobilinogen - Negative Bedside Urine Nitrite - Negative Bedside Urine Leukocytes +/- 15 Esterase Imaging Data US - abdomen: Radiologist's Impression: Chart Viewer Diagnostics Subcategory All Activity ??:?? All Time ??:?? All Subcategories Filter Laboratory Imaging Microbiology Pathology Blood Bank Tests Cardiovascular Other Specialty DATE TYPE STATUS REF RANGE/AUTHOR Hx 09/04/21 20:38 Abdomen Ultrasound Signed Ruy Herr 08/16/21 18:31 Abdomen Ultrasound Signed Alphonse Antunez 08/07/21 19:05 Abdomen/Pelvis CT Signed Riki Cerda 07/15/21 16:50 Ultrasound Signed Luigi Anderson Sarah D K ED 30, F?1990 MRN#? [id number] [facility],?[facility] ED??? 160.02cm 68.946kg BMI: 26.9kg/m? Abdominal Pain Acc#? [id number] Resus Status Not Ordered No Hx Avail Special Indicators No Data to Display Home Meds Not Confirmed Prescription Monitoring Program Total 20 MME/Day Pending Discharge MEDICATIONS (INSTRUCTIONS) LAST TAKEN Active ??alprazolam ??1 mgPOTIDPRN ??dicyclomine ??10 mgPOTID#30 cap ??famotidine [Pepcid] ??40 mgPOBEDTIME#14 tab ??hydrocodone-acetaminophen ??1 [id number] tab 20 MME/Day ??metoclopramide HCl ??10 [id number]#14 tab ??ondansetron ??4 [id number]#10 tab pantoprazole [Protonix] 40 mgPODAILY#30 tab ??quetiapine ??200 mgPOBEDTIME ??zolpidem ??10 mgPOBEDTIMEPRN Allergies cephalexin (From Keflex) Hives ketorolac (From Toradol) ITCHING latex tramadol Hives Problems ? ONSET Chronic epigastric pain Vital Signs Today 00:14 BP 115/65? Pulse 90? Resp 16? O2 Sat 99? Delivery Room Air? Diagnostics Reports Sushma Harris??30??F??1990 ? Allergy/Adv: cephalexin, ketorolac, latex, tramadol (More??) Close Abdomen Ultrasound (Signed) Ruy Herr - 09/04/21 Abdomen Ultrasound (Signed) Alphonse Antunez - 08/16/21 Abdomen/Pelvis CT (Signed) CerdaRiki - 08/07/21 Ultrasound (Signed) Srikanth Andersonwn - 07/15/21 Launch?[place] [address] Ultrasound Report Signed Patient: Sushma Harris MR#: [id number] : 1990 Acct:[id number] Age/Sex: 30 / F Date of Service: 09/04/21 Loc: ED Accession Number: [id number] ?? Procedure: US abdomen limited Ordering Provider: Marc Jimenez D.O. PROCEDURE:? US ABDOMEN LIMITED ? INDICATIONS:? SEVERE RUQ PAIN ? TECHNIQUE:? Real-time scanning was performed of the abdominal and retroperitoneal organs, with image documentation.? ? COMPARISON:? [facility], US ABDOMEN LIMITED, 08/16/2021, 18:54. ? FINDINGS:? ? Liver:? The liver demonstrates diffusely increased echotexture without focal abnormalities consistent with chronic hepatocellular disease/hepatic steatosis. ? Gallbladder:? Gallbladder appears mildly contracted.? Otherwise, no gallstones, wall thickening, or pericholecystic fluid. ? Biliary ducts:? Intrahepatic bile ducts are non-dilated.? Extrahepatic bile duct caliber measures 4 mm.? Normal is 6-7 mm or less in diameter, or 10 mm or less post-cholecystectomy.? ? Pancreas:? Visualized portions of the pancreas are sonographically normal.? ? Miscellaneous:? No free abdominal fluid.? ? IMPRESSION:? ? The liver demonstrates diffusely increased echotexture without focal abnormalities consistent with chronic hepatocellular disease/hepatic steatosis. Consider correlation with LFTs. ? Contracted appearance of the gallbladder.? Otherwise, no evidence for cholelithiasis or acute cholecystitis. ? Unremarkable appearance of the pancreas. ? ? ? Dictated by: Ruy Herr M.D. on 09/04/2021 at 21:47 ? ? Approved by: Ruy Herr M.D. on 09/04/2021 at 21:49 ? MDM Narrative Medical decision making narrative: Patient with repeat visit for upper abdominal pain along with nausea. She has had multiple extensive workups under similar presentation and an outstanding appointment with GI. That being said labs were obtained along with further imaging. Her history, physical exam, labs and imaging are very reassuring and there is no indication of a surgical her emergency. Her pain is well controlled, she is tolerating orals. Return precautions have been discussed and questions answered to her apparent satisfaction Discharge Plan Departure Patient Disposition: Home Clinical Impression: Chronic epigastric pain Instructions: DI for Abdominal Pain-Adult Activity Restrictions/Additional Instructions: *You have been diagnosed with [chronic epigastic pain. Thankfully your history, exam, labs, and imaging are reassuring. ] *What to do: *Please continue to take your regular medications as directed. [ x] New medication prescriptions sent to your pharmacy: [[facility] ] [ ] New medication written as a paper prescription [ ] No new medications given *Please follow up with your primary care provider in 2-3 days, call for an appointment. Let them know you were seen in the Emergency Department and that we ask that you be seen in follow up. We will electronically transmit a record of today's note if your PCP is in our system *If you do not have a primary care provider please contact the [facility] Resource line at [phone]. They will ask some questions about your medical history and help get you set up with a doctor in the community. *Return to Emergency Department if you should have any new, worsening or concerning symptoms, such as [fever greater than 101 F, shaking chills, worsening pain, persistent vomiting or other bothersome symptoms] Prescriptions: New pantoprazole [Protonix] 40 mg tablet,delayed release (DR/EC) 40 mg PO DAILY Qty: 30 0RF No Action alprazolam 1 mg tablet 1 mg PO TID PRN (Reason: Anxiety) 0RF Label Comments: TAKE 1 TABLET BY MOUTH THREE TIMES DAILY NEEDED FOR SEVERE ANXIETY quetiapine 200 mg tablet 200 mg PO BEDTIME 0RF Label Comments: TAKE 1 TABLET BY MOUTH AT BEDTIME zolpidem 10 mg tablet 10 mg PO BEDTIME PRN (Reason: Insomnia) 0RF Label Comments: TAKE 1 TABLET BY MOUTH EVERY DAY AT BEDTIME hydrocodone-acetaminophen 5-325 mg tablet 1 tab PO Q6H PRN (Reason: pain) Qty: 8 0RF ondansetron 4 mg tablet,disintegrating 4 mg PO Q6HR PRN (Reason: nausea and vomiting) Qty: 10 0RF dicyclomine 10 mg capsule 10 mg PO TID Qty: 30 0RF metoclopramide HCl 10 mg tablet,disintegrating 10 mg PO Q6H Qty: 14 0RF famotidine [Pepcid] 40 mg tablet 40 mg PO BEDTIME Qty: 14 0RF
--- NOTE | 2021-09-04 20:38 | DI.US.S_ITS ---
PROCEDURE: US ABDOMEN LIMITED INDICATIONS: SEVERE RUQ PAIN TECHNIQUE: Real-time scanning was performed of the abdominal and retroperitoneal organs, with image documentation. COMPARISON: [facility], , US ABDOMEN LIMITED, 08/16/2021, 18:54. FINDINGS: Liver: The liver demonstrates diffusely increased echotexture without focal abnormalities consistent with chronic hepatocellular disease/hepatic steatosis. Gallbladder: Gallbladder appears mildly contracted. Otherwise, no gallstones, wall thickening, or pericholecystic fluid. Biliary ducts: Intrahepatic bile ducts are non-dilated. Extrahepatic bile duct caliber measures 4 mm. Normal is 6-7 mm or less in diameter, or 10 mm or less post-cholecystectomy. Pancreas: Visualized portions of the pancreas are sonographically normal. Miscellaneous: No free abdominal fluid. IMPRESSION: The liver demonstrates diffusely increased echotexture without focal abnormalities consistent with chronic hepatocellular disease/hepatic steatosis. Consider correlation with LFTs. Contracted appearance of the gallbladder. Otherwise, no evidence for cholelithiasis or acute cholecystitis. Unremarkable appearance of the pancreas. Dictated by: Ruy Herr M.D. on 09/04/2021 at 21:47 Approved by: Ruy Herr M.D. on 09/04/2021 at 21:49
[2021-09-04 20:56] LABS: Add Manual Diff / Slide Review NO; Basophils Absolute Auto 100 /uL (0-100); Basophils Percent Auto 1.3 % (0-2); Eosinophils Absolute Auto 400 /uL (0-450); Eosinophils Percent Auto 3.5 % (2-4); Hematocrit 25.9 % (36-46); Hemoglobin 7.8 g/dL (12.0-16.0); Lymphocytes Absolute Auto 3700 /uL (1100-4500); Lymphocytes Percent Auto 34.5 % (25-40); Mean Corpuscular HGB Conc 30.2 % (30-36); Mean Corpuscular Hemoglobin 18.9 PG (26-34); Mean Corpuscular Volume 62.5 fL (80-100); Monocytes Absolute Auto 400 /uL (0-900); Monocytes Percent Auto 4.1 % (3-14); Neutrophils Absolute Auto 6000 /uL (1500-7000); Neutrophils Percent Auto 56.6 % (50-75); Red Blood Cell Count 4.14 X10^6/uL (4.0-5.2); Red Cell Distribution Width 18.9 % (11.6-14.8); White Blood Cell Count 10.6 X10^3/uL (4.5-11.0)
[2021-09-04 21:11] LABS: Platelet Count 311 X10^3/uL (150-400)
--- NOTE | 2021-09-04 21:11 | PC.NURSE ---
Multiple attempts for IV start. Patient reports she is a difficult stick for IV access. Two attempts by this RN, able to get blood with first attempt
[2021-09-04 21:12] LABS: Anisocytosis 1+
[2021-09-04 21:13] LABS: Microcytosis 2+
[2021-09-04] MEDS: MAG HYDROX/ALUMINUM/SIMETH SUS 20 ML, LIDOCAINE VISCOUS 2% 15 ML PO (21:18)
--- NOTE | 2021-09-04 21:23 | PC.NURSE ---
Patient given Maalox plus viscous lidocaine per OCT. After taking she immediately threw up and reports it all came back up.
[2021-09-04 21:54] LABS: Bacteria Urine Few (2-10); Mucus Urine 2+ (Negative); RBC Urine 1-5/HPF (0-5/HPF); Squamous Epithelial Cell Urine 5-10 /HPF (0-5/HPF); Transitional Epi Cells Urine 5-10/HPF (0-5/HPF); WBC Urine 10-30/HPF (0-5/HPF)
[2021-09-04] MEDS: HYDROMORPHONE 1 MG INJ IM (23:41)
[2021-09-05 00:14] VITALS: BP 115/65; PULSE 90; RESP 16; O2SAT 99
== END 2021-09-05 00:14 | disposition home or self-care (01) ==
PROVIDERS: Emergency Medicine; Emergency Provider Emergency Medicine
DX: R10.13 Epigastric pain (principal); G89.29 Other chronic pain; F17.210 Nicotine dependence, cigarettes, uncomplicated; Z88.6 Allergy status to analgesic agent
CPT/HCPCS: 76705; 80053; 81003; 81015; 81025; 83690; 85025; 87086; 96372; 99284; J1170

== ENCOUNTER 2021-09-12 18:20 | Emergency (ER) | payer OTHER, MEDICAID, SELFPAY ==
[2021-09-12 18:23] VITALS: BP 110/55; PULSE 90; RESP 18; TEMP 36.7; O2SAT 100
[2021-09-12 19:12] LABS: COVID19 -Nasal RAPID Negative (Negative)
[2021-09-12] MEDS: ONDANSETRON 4 MG ODT SL (20:34)
--- NOTE | 2021-09-12 20:59 | ED_ITS ---
HPI - Nausea/Vomiting/Diarrhea General Chief complaint: Nausea/Vomiting/Diarrhea Stated complaint: diarrhea, thinks dehydrated Time Seen by Provider: 09/12/21 20:09 Source: patient Mode of arrival: Wheelchair History of Present Illness HPI Narrative: Patient is a 30-year-old female who has been seen at this facility and other facilities numerous times for abdominal pain. She has had significant workup including CT scans and ultrasounds. Pain continues. She does have a history of anemia. Her last ED visit was on 09/08/2021 at [facility]. I have received those records. There is discussion and chart of no longer receiving any prescription narcotic medications. Related Data Home Medications Medication Instructions Recorded Confirmed alprazolam 1 mg tablet 1 mg PO TID PRN 07/15/21 07/15/21 quetiapine 200 mg tablet 200 mg PO BEDTIME 07/15/21 07/15/21 zolpidem 10 mg tablet 10 mg PO BEDTIME PRN 07/15/21 07/15/21 Previous Rx's Medication Instructions Recorded hydrocodone 5 mg-acetaminophen 325 1 tab PO Q6H PRN #8 tab 08/07/21 mg tablet ondansetron 4 mg disintegrating 4 mg PO Q6HR PRN #10 tab 08/07/21 tablet dicyclomine 10 mg capsule 10 mg PO TID #30 cap 08/14/21 famotidine 40 mg tablet (Pepcid) 40 mg PO BEDTIME #14 tab 08/16/21 metoclopramide HCl 10 mg 10 mg PO Q6H #14 tab 08/16/21 disintegrating tablet pantoprazole 40 mg tablet,delayed 40 mg PO DAILY #30 tab 09/05/21 release (Protonix) Allergies Allergy/AdvReac Type Severity Reaction Status Date / Time cephalexin [From Keflex] Allergy Hives Verified 09/04/21 16:25 ketorolac [From Toradol] Allergy ITCHING Verified 09/04/21 16:25 latex Allergy Verified 09/04/21 16:25 tramadol Allergy Hives Verified 09/04/21 16:25 Review of Systems Review of Systems Narrative: GENERAL: Denies chills, fatigue, malaise, fever, sweats, travel HEENT: Denies sinus pain, ear pain, sore throat, difficulty swallowing, neck pain RESPIRATORY: Denies dyspnea, cough, wheezing, hemoptysis, sputum. CARDIOVASCULAR: Denies chest pain, palpitations, orthopnea, edema GASTROINTESTINAL: See HPI : Denies dysuria, frequency, incontinence, hematuria, urinary retention, flank pain. MUSCULOSKELETAL: Denies weakness, joint pain, or bony pain SKIN: No rash, no erythema, no pruritus NEUROLOGIC: Denies weakness, dizziness, headache, numbness, change in speech, confusion PSYCHIATRIC: No concerning psychosocial issues. 12 point review of systems is negative except for those stated above and HPI Patient History Medical History Anemia Social History Smoking Status: Current every day smoker Smoking Status: Current every day smoker tobacco type: cigarettes alcohol intake frequency: holidays/special occasions only Substance Use Type: does not use Exam Initial Vital Signs Initial Vital Signs: Vital Signs Temperature 98.1 F 09/12/21 18:23 Pulse Rate 90 09/12/21 18:23 Respiratory Rate 18 09/12/21 18:23 Blood Pressure 110/55 L 09/12/21 18:23 Pulse Oximetry 100 09/12/21 18:23 GENERAL: 30-year-old female appears to not feel well and in pain HEENT: Head atraumatic,EOMI, pupils reactive, face symmetric, [moist] mucous membranes CARDIOVASCULAR: Regular rate and rhythm without murmurs, rubs or gallops. RESPIRATORY: Breath sounds equal bilaterally, no wheezes rales or rhonchi. ABDOMEN: Soft, epigastric tenderness EXTREMITIES: Normal range of motion, no clubbing or edema. Neurovascularly intact NEUROLOGICAL: Alert and oriented x4.Normal gait and speech. SKIN: Warm, dry, no laceration, no petechiae, no rashes or lesions. Course Orders Ordered: ED Orders 09/12/21 18:27 COVID19 -Nasal swab/Pre-Proc Stat 09/12/21 21:04 CBC Auto Diff [Complete Blood Count AUTO DIFF] Stat CMP [Comprehensive Metabolic Panel] Stat Lipase Stat 09/12/21 22:53 Urine Culture Stat Urine Microscopic Stat Discontinued Medications Hydromorphone HCl (Hydromorphone 1 Mg Inj) 1 mg IV NOW ONE Stop: 09/12/21 21:29 Last Admin: 09/12/21 21:35 Dose: 1 mg Documented by: APAFFIE Hydromorphone HCl (Hydromorphone 2 Mg Inj) 1 mg SUBCUT Q4H PRN PRN Reason: Pain, Severe (7-10) Last Admin: 09/12/21 23:20 Dose: 1 mg Documented by: TOBIAS Sodium Chloride (Normal Saline 0.9%) 1,000 mls @ 1,000 mls/hr IV BOLUS ONE Stop: 09/12/21 22:44 Last Infusion: 09/12/21 22:58 Dose: 0 mls/hr Documented by: Admin: 09/12/21 21:50 Dose: 1,000 mls/hr Documented by: TOBIAS Ondansetron HCl (Ondansetron 4 Mg Odt) 4 mg SL NOW ONE Stop: 09/12/21 20:10 Last Admin: 09/12/21 20:34 Dose: 4 mg Documented by: SANJANA Pantoprazole Sodium (Pantoprazole 40 Mg Vial) 40 mg IV NOW ONE Stop: 09/12/21 21:29 Last Admin: 09/12/21 21:35 Dose: 40 mg Documented by: TOBIAS Vital Signs Vital signs: Vital Signs - 8 hr 09/12/21 18:23 09/12/21 23:24 Temperature 98.1 F Pulse Rate 90 80 Respiratory Rate 18 16 Blood Pressure 110/55 L 120/65 Pulse Oximetry 100 98 MDM - Nausea/Vomiting/Diarrhea Lab Data Result diagrams: 09/12/21 21:04 09/12/21 21:04 Labs: Lab Results 09/12/21 09/12/21 09/12/21 Range/Units 18:27 21:04 21:04 WBC 5.6 (4.5-11.0) X10^3/uL RBC 4.51 (4.0-5.2) X10^6/uL Hgb 8.5 L (12.0-16.0) g/dL Hct 28.1 L (36-46) % MCV 62.3 L (80-100) fL MCH 18.8 L (26-34) PG MCHC 30.2 (30-36) % RDW 18.9 H (11.6-14.8) % Plt Count 292 (150-400) X10^3/uL Neut % (Auto) 57.4 (50-75) % Lymph % (Auto) 35.9 (25-40) % [place] % (Auto) 3.6 (3-14) % Eos % (Auto) 2.4 (2-4) % Baso % (Auto) 0.7 (0-2) % Neut # (Auto) 3200 (3427-9137) /uL Lymph # (Auto) 2000 (1690-5442) /uL [place] # (Auto) 200 (0-900) /uL Eos # (Auto) 100 (0-450) /uL Baso # (Auto) 0 (0-100) /uL RBC Morphology See below Polychromasia 1+ H Anisocytosis 2+ H Microcytosis 2+ H Sodium 141 (137-145) mmol/L Potassium 3.7 (3.4-5.1) mmol/L Chloride 107 (98-107) mmol/L Carbon Dioxide 26 (22-32) mmol/L BUN 15 (7-17) mg/dL Creatinine 0.78 (0.52-1.04) mg/dL Estimated GFR > 60.0 (>60) mL/min BUN/Creatinine Ratio 19.2 (6-22) Glucose 89 (70-100) mg/dL Calcium 9.6 (8.4-10.2) mg/dL Total Bilirubin 0.5 (0.2-1.3) mg/dL AST 40 H (14-36) IU/L ALT 51 H (<35) IU/L Alkaline Phosphatase 61 (38-126) U/L Total Protein 7.6 (6.3-8.2) g/dL Albumin 4.6 (3.5-5.0) g/dL Globulin 3.0 (1.7-4.1) g/dL Albumin/Globulin Ratio 1.5 (1.0-2.8) Lipase 62 D (23-300) U/L Urine RBC (0-5/HPF) Urine WBC (0-5/HPF) Ur Squamous Epith Cells (0-5/HPF) Urine Bacteria (None) Urine Mucus (Negative) Ur Culture Indicated? SARS-CoV-2 (PCR) Negative (Negative) 09/12/21 Range/Units 22:53 WBC (4.5-11.0) X10^3/uL RBC (4.0-5.2) X10^6/uL Hgb (12.0-16.0) g/dL Hct (36-46) % MCV (80-100) fL MCH (26-34) PG MCHC (30-36) % RDW (11.6-14.8) % Plt Count (150-400) X10^3/uL Neut % (Auto) (50-75) % Lymph % (Auto) (25-40) % [place] % (Auto) (3-14) % Eos % (Auto) (2-4) % Baso % (Auto) (0-2) % Neut # (Auto) (7273-6166) /uL Lymph # (Auto) (1841-2650) /uL [place] # (Auto) (0-900) /uL Eos # (Auto) (0-450) /uL Baso # (Auto) (0-100) /uL RBC Morphology Polychromasia Anisocytosis Microcytosis Sodium (137-145) mmol/L Potassium (3.4-5.1) mmol/L Chloride (98-107) mmol/L Carbon Dioxide (22-32) mmol/L BUN (7-17) mg/dL Creatinine (0.52-1.04) mg/dL Estimated GFR (>60) mL/min BUN/Creatinine Ratio (6-22) Glucose (70-100) mg/dL Calcium (8.4-10.2) mg/dL Total Bilirubin (0.2-1.3) mg/dL AST (14-36) IU/L ALT (<35) IU/L Alkaline Phosphatase (38-126) U/L Total Protein (6.3-8.2) g/dL Albumin (3.5-5.0) g/dL Globulin (1.7-4.1) g/dL Albumin/Globulin Ratio (1.0-2.8) Lipase (23-300) U/L Urine RBC 0-1/hpf (0-5/HPF) Urine WBC 1-5/hpf (0-5/HPF) Ur Squamous Epith Cells 1-5 /hpf (0-5/HPF) Urine Bacteria Moderate (10-30) H (None) Urine Mucus 3+ H (Negative) Ur Culture Indicated? Specimen cultured SARS-CoV-2 (PCR) (Negative) Point of Care Testing Test Results Negative Urine Dip Bedside Urine Glucose Negative Bedside Urine Bilirubin + 1 Bedside Urine Ketone - Negative Urine Specific [place] 1.025 Bedside Urine Occult Blood - Negative Bedside Urine Protein - Negative Bedside Urine Nitrite - Negative Bedside Urine Leukocytes +/- 15 Esterase MDM Narrative Medical decision making narrative: Patient has a mildly elevated liver enzymes today. She has had multiple right upper quadrant ultrasounds. Bilirubin is negative. Ultrasound from September 08 has been reviewed by myself. There is no abnormality. Patient does need an EGD. She apparently is still taking [id number] antacid medication which does seem to help. He is no longer going to be getting pain medication from the emergency department. Haim has helped a lot with her pain Discharge Plan Departure Patient Disposition: Home Clinical Impression: Abdominal pain, chronic, epigastric Instructions: DI for Gastric Ulcer Activity Restrictions/Additional Instructions: *You have been diagnosed with abdominal pain *What to do: Please follow-up with your GI. He may continue to take [id number] Pepcid if it was working *Continue to take medications as directed *Follow up with your primary care provider in 2-3 days or call [phone] *Return to ER if you should have any new, worsening or concerning symptoms Prescriptions: No Action alprazolam 1 mg tablet 1 mg PO TID PRN (Reason: Anxiety) 0RF Label Comments: TAKE 1 TABLET BY MOUTH THREE TIMES DAILY NEEDED FOR SEVERE ANXIETY quetiapine 200 mg tablet 200 mg PO BEDTIME 0RF Label Comments: TAKE 1 TABLET BY MOUTH AT BEDTIME zolpidem 10 mg tablet 10 mg PO BEDTIME PRN (Reason: Insomnia) 0RF Label Comments: TAKE 1 TABLET BY MOUTH EVERY DAY AT BEDTIME hydrocodone-acetaminophen 5-325 mg tablet 1 tab PO Q6H PRN (Reason: pain) Qty: 8 0RF ondansetron 4 mg tablet,disintegrating 4 mg PO Q6HR PRN (Reason: nausea and vomiting) Qty: 10 0RF dicyclomine 10 mg capsule 10 mg PO TID Qty: 30 0RF metoclopramide HCl 10 mg tablet,disintegrating 10 mg PO Q6H Qty: 14 0RF famotidine [Pepcid] 40 mg tablet 40 mg PO BEDTIME Qty: 14 0RF pantoprazole [Protonix] 40 mg tablet,delayed release (DR/EC) 40 mg PO DAILY Qty: 30 0RF
[2021-09-12 21:22] LABS: Add Manual Diff / Slide Review NO; Basophils Absolute Auto 0 /uL (0-100); Basophils Percent Auto 0.7 % (0-2); Eosinophils Absolute Auto 100 /uL (0-450); Eosinophils Percent Auto 2.4 % (2-4); Hematocrit 28.1 % (36-46); Hemoglobin 8.5 g/dL (12.0-16.0); Lymphocytes Absolute Auto 2000 /uL (1100-4500); Lymphocytes Percent Auto 35.9 % (25-40); Mean Corpuscular HGB Conc 30.2 % (30-36); Mean Corpuscular Hemoglobin 18.8 PG (26-34); Mean Corpuscular Volume 62.3 fL (80-100); Monocytes Absolute Auto 200 /uL (0-900); Monocytes Percent Auto 3.6 % (3-14); Neutrophils Absolute Auto 3200 /uL (1500-7000); Neutrophils Percent Auto 57.4 % (50-75); Platelet Count 292 X10^3/uL (150-400); Red Blood Cell Count 4.51 X10^6/uL (4.0-5.2); Red Cell Distribution Width 18.9 % (11.6-14.8); White Blood Cell Count 5.6 X10^3/uL (4.5-11.0)
[2021-09-12 21:34] LABS: Alanine Aminotransferase 51 IU/L (<35); Albumin 4.6 g/dL (3.5-5.0); Albumin Globulin Ratio 1.5 (1.0-2.8); Alkaline Phosphatase 61 U/L (38-126); Aspartate Aminotransferase 40 IU/L (14-36); BUN Creatinine Ratio 19.2 (6-22); Bilirubin Total 0.5 mg/dL (0.2-1.3); Blood Urea Nitrogen 15 mg/dL (7-17); Calcium 9.6 mg/dL (8.4-10.2); Carbon Dioxide 26 mmol/L (22-32); Chloride 107 mmol/L (98-107); Estimated Glomerular Filt Rate > 60.0 mL/min (>60); Glucose 89 mg/dL (70-100); HEMOLYSIS < 15 (0-50); Lipase 62 U/L (23-300); Potassium 3.7 mmol/L (3.4-5.1); Sodium 141 mmol/L (137-145); Total Protein 7.6 g/dL (6.3-8.2)
[2021-09-12] MEDS: HYDROMORPHONE 1 MG INJ IV (21:35)
[2021-09-12] MEDS: PANTOPRAZOLE 40 MG VIAL IV (21:35)
[2021-09-12 21:47] LABS: Anisocytosis 2+
[2021-09-12 21:48] LABS: Microcytosis 2+; Polychromasia 1+
[2021-09-12] MEDS: SODIUM CHLORIDE 0.9% 1,000 ML 1000 ML IV (21:50)
--- NOTE | 2021-09-12 22:58 | PC.NURSE ---
She accidentally pulled her iv cath out patent and intact.
[2021-09-12 23:10] LABS: Bacteria Urine Moderate (10-30); RBC Urine 0-1/HPF (0-5/HPF); Squamous Epithelial Cell Urine 1-5 /HPF (0-5/HPF); WBC Urine 1-5/HPF (0-5/HPF)
[2021-09-12 23:11] LABS: Culture Indicated Urine Specimen Cultured; Mucus Urine 3+ (Negative)
[2021-09-12] MEDS: HYDROMORPHONE 2 MG INJ 1 MG SUBCUT (23:20)
[2021-09-12 23:24] VITALS: BP 120/65; PULSE 80; RESP 16; O2SAT 98
== END 2021-09-12 23:27 | disposition home or self-care (01) ==
PROVIDERS: Emergency Provider Emergency Medicine
DX: R10.13 Epigastric pain (principal); G89.29 Other chronic pain; F17.210 Nicotine dependence, cigarettes, uncomplicated; Z20.822 Contact with and (suspected) exposure to COVID-19
CPT/HCPCS: 36415; 80053; 81003; 81015; 81025; 83690; 85025; 87086; 87635; 96361; 96372; 96374; 96375; 99284; C9803; C9113; J1170

== ENCOUNTER 2021-09-13 15:21 | Emergency (ER) | payer OTHER, MEDICAID, SELFPAY ==
[2021-09-13 15:35] VITALS: BP 122/78; PULSE 104; RESP 18; TEMP 36.6; O2SAT 100; BMI 29.0
--- NOTE | 2021-09-13 15:44 | ED.GENADULT ---
HPI - General Adult General Chief complaint: Abdominal Pain Stated complaint: abd pain, throwing up here yesterday Time Seen by Provider: 09/13/21 15:28 Source: patient Mode of arrival: Ambulatory History of Present Illness HPI narrative: Patient is a 30-year-old female. Has been to emergency department multiple times recently for upper endoscopy. Has had a very extensive workup. Was most recently seen here in this emergency department yesterday. Is here because of the chronic epigastric abdominal pain and throwing up. She is scheduled for an upper endoscopy next month. She states she is here because ?my doctor's not doing her job? with regard to pain control and also with regard to a iron infusion. Related Data Home Medications Medication Instructions Recorded Confirmed alprazolam 1 mg tablet 1 mg PO TID PRN 07/15/21 07/15/21 quetiapine 200 mg tablet 200 mg PO BEDTIME 07/15/21 07/15/21 zolpidem 10 mg tablet 10 mg PO BEDTIME PRN 07/15/21 07/15/21 Previous Rx's Medication Instructions Recorded hydrocodone 5 mg-acetaminophen 325 1 tab PO Q6H PRN #8 tab 08/07/21 mg tablet ondansetron 4 mg disintegrating 4 mg PO Q6HR PRN #10 tab 08/07/21 tablet dicyclomine 10 mg capsule 10 mg PO TID #30 cap 08/14/21 famotidine 40 mg tablet (Pepcid) 40 mg PO BEDTIME #14 tab 08/16/21 metoclopramide HCl 10 mg 10 mg PO Q6H #14 tab 08/16/21 disintegrating tablet pantoprazole 40 mg tablet,delayed 40 mg PO DAILY #30 tab 09/05/21 release (Protonix) Allergies Allergy/AdvReac Type Severity Reaction Status Date / Time cephalexin [From Keflex] Allergy Hives Verified 09/04/21 16:25 ketorolac [From Toradol] Allergy ITCHING Verified 09/04/21 16:25 latex Allergy Verified 09/04/21 16:25 tramadol Allergy Hives Verified 09/04/21 16:25 Review of Systems Constitutional Constitutional: Reports system reviewed and no additional complaints, except as documented Gastrointestinal Gastrointestinal: Reports as per HPI and Reports system reviewed and no additional complaints, except as documented Hematologic/Lymphatic On Anticoagulants: No Patient History Medical History Anemia Social History Smoking Status: Current every day smoker Smoking Status: Current every day smoker tobacco type: cigarettes alcohol intake frequency: holidays/special occasions only Substance Use Type: does not use Exam Initial Vital Signs Initial Vital Signs: Vital Signs Temperature 97.8 F 09/13/21 15:35 Pulse Rate 104 H 09/13/21 15:35 Respiratory Rate 18 09/13/21 15:35 Blood Pressure 122/78 09/13/21 15:35 Pulse Oximetry 100 09/13/21 15:35 HENMT Head: normal to inspection and normocephalic Cardio Rate: regular rate GI Inspection: normal to inspection Palpation: soft, No guarding and tender (Generalized tenderness) Skin General: no rashes or lesions noted Neuro General: patient alert, patient awake and moves all extremities Course Vital Signs Vital signs: Vital Signs - 8 hr 09/13/21 15:35 Temperature 97.8 F Pulse Rate 104 H Respiratory Rate 18 Blood Pressure 122/78 Pulse Oximetry 100 Medical Decision Making MDM Narrative Medical decision making narrative: Patient has had a very extensive workup of her epigastric abdominal pain. The next step in his workup his needing a upper endoscopy for which she is scheduled next month. I do not feel the need based on her physical exam today that patient requires CT scan or ultrasound. I have low suspicion for an acute surgical intra-abdominal pathology given her presentation and her workup up to this point. Patient will not be receiving opioid pain medications add to the emergency department. I informed her that this either needs to come from her primary doctor or form a roof painter. She was given return precautions Discharge Plan Departure Patient Disposition: Home Clinical Impression: Chronic epigastric pain Instructions: DI for Abdominal Pain-Adult Activity Restrictions/Additional Instructions: Unfortunately any pain control needs to come from either your primary doctor or a roof painter. The emergency department will no longer provide any opioid pain medication for your chronic abdominal pain. Continue with the reflux medications you are taking. I do recommend that you follow-up with the GI providers as the next step in this is a upper endoscopy (scope). Return to the emergency department for any new symptoms Prescriptions: No Action alprazolam 1 mg tablet 1 mg PO TID PRN (Reason: Anxiety) 0RF Label Comments: TAKE 1 TABLET BY MOUTH THREE TIMES DAILY NEEDED FOR SEVERE ANXIETY quetiapine 200 mg tablet 200 mg PO BEDTIME 0RF Label Comments: TAKE 1 TABLET BY MOUTH AT BEDTIME zolpidem 10 mg tablet 10 mg PO BEDTIME PRN (Reason: Insomnia) 0RF Label Comments: TAKE 1 TABLET BY MOUTH EVERY DAY AT BEDTIME hydrocodone-acetaminophen 5-325 mg tablet 1 tab PO Q6H PRN (Reason: pain) Qty: 8 0RF ondansetron 4 mg tablet,disintegrating 4 mg PO Q6HR PRN (Reason: nausea and vomiting) Qty: 10 0RF dicyclomine 10 mg capsule 10 mg PO TID Qty: 30 0RF metoclopramide HCl 10 mg tablet,disintegrating 10 mg PO Q6H Qty: 14 0RF famotidine [Pepcid] 40 mg tablet 40 mg PO BEDTIME Qty: 14 0RF pantoprazole [Protonix] 40 mg tablet,delayed release (DR/EC) 40 mg PO DAILY Qty: 30 0RF
== END 2021-09-13 15:58 | disposition home or self-care (01) ==
PROVIDERS: Emergency Provider Emergency Medicine
DX: R10.13 Epigastric pain (principal); G89.29 Other chronic pain; F17.210 Nicotine dependence, cigarettes, uncomplicated
CPT/HCPCS: 99281

== ENCOUNTER 2021-10-06 08:50 | Emergency (ER) | payer OTHER, MEDICAID, SELFPAY ==
[2021-10-06 09:05] VITALS: BP 111/66; PULSE 106; RESP 22; TEMP 36.2; O2SAT 100; BMI 27.4
--- NOTE | 2021-10-06 09:07 | DI.RAD.S_ITS ---
PROCEDURE: XR FOOT LT MIN 3V INDICATIONS: pain TECHNIQUE: 3 views of the foot were acquired. COMPARISON: None. FINDINGS: Bones: No fractures or dislocations. No suspicious bony lesions. Soft tissues: No tibiotalar joint effusion. Achilles tendon appears normal. IMPRESSION: Unremarkable left foot radiographs Approved by: Wisam Wiley M.D. on 10/06/2021 at 9:00
--- NOTE | 2021-10-06 09:07 | DI.RAD.S_ITS ---
PROCEDURE: XR ANKLE LT MIN 3V INDICATIONS: pain injury TECHNIQUE: 3 views of the ankle were acquired. COMPARISON: None. FINDINGS: Bones: No fractures or dislocations. Ankle mortise is normally aligned. No suspicious bony lesions. Soft tissues: No tibiotalar joint effusion. Achilles tendon appears normal. IMPRESSION: Unremarkable left ankle radiographs Approved by: Wisam Wiley M.D. on 10/06/2021 at 9:01
--- NOTE | 2021-10-06 09:07 | DI.RAD.S_ITS ---
PROCEDURE: XR KNEE LT 3V INDICATIONS: pain injury yesterday TECHNIQUE: 3 views of the knee were acquired. COMPARISON: None. FINDINGS: Bones: No fractures or dislocations. No suspicious bony lesions. Suture anchors noted in the patella Soft tissues: No joint effusion. No suspicious soft tissue calcifications. Prepatellar soft tissue swelling. IMPRESSION: Prepatellar soft tissue swelling. No fracture. Approved by: Wisam Wiley M.D. on 10/06/2021 at 8:59
--- NOTE | 2021-10-06 09:07 | ED.LOWEXIN ---
HPI - Extremity Injury (Lower) General Chief Complaint: Extremity Problem,Nontraumatic Stated Complaint: Knee/foot pain. hx of broken foot Time Seen by Provider: 10/06/21 09:00 History of Present Illness HPI Narrative: Patient is a 31-year-old female known well to myself and by this facility presenting today with left knee pain. She states that she was trying on clothes yesterday she fell. She says she has been unable to ambulate or bear weight. Her knee ankle and foot. There is no swelling. She has been in multiple times previously for abdominal pain she finally had an EGD she does not know the result of it but she says her stomach pain is controlled today. Related Data Home Medications Medication Instructions Recorded Confirmed alprazolam 1 mg tablet 1 mg PO TID PRN 07/15/21 07/15/21 quetiapine 200 mg tablet 200 mg PO BEDTIME 07/15/21 07/15/21 zolpidem 10 mg tablet 10 mg PO BEDTIME PRN 07/15/21 07/15/21 Previous Rx's Medication Instructions Recorded hydrocodone 5 mg-acetaminophen 325 1 tab PO Q6H PRN #8 tab 08/07/21 mg tablet ondansetron 4 mg disintegrating 4 mg PO Q6HR PRN #10 tab 08/07/21 tablet dicyclomine 10 mg capsule 10 mg PO TID #30 cap 08/14/21 famotidine 40 mg tablet (Pepcid) 40 mg PO BEDTIME #14 tab 08/16/21 metoclopramide HCl 10 mg 10 mg PO Q6H #14 tab 08/16/21 disintegrating tablet pantoprazole 40 mg tablet,delayed 40 mg PO DAILY #30 tab 09/05/21 release (Protonix) Allergies Allergy/AdvReac Type Severity Reaction Status Date / Time cephalexin [From Keflex] Allergy Hives Verified 09/04/21 16:25 ketorolac [From Toradol] Allergy ITCHING Verified 09/04/21 16:25 latex Allergy Verified 09/04/21 16:25 tramadol Allergy Hives Verified 09/04/21 16:25 Review of Systems Review of Systems Narrative: GENERAL: Denies chills,fever HEENT: Denies throat pain RESPIRATORY: Denies dyspnea, cough, wheezing CARDIOVASCULAR: Denies chest pain, palpitations GASTROINTESTINAL: Denies nausea, vomiting MUSCULOSKELETAL: See HPI SKIN: No rash, no laceration, no pruritus NEUROLOGIC: Denies weakness, dizziness, headache, numbness 8 point review of systems is negative except for those stated above and HPI Patient History Medical History Anemia Social History Smoking Status: Current every day smoker Smoking Status: Current every day smoker tobacco type: cigarettes alcohol intake frequency: holidays/special occasions only Substance Use Type: does not use Exam Initial Vital Signs Initial Vital Signs: Vital Signs Temperature 97.2 F L 10/06/21 09:05 Pulse Rate 106 H 10/06/21 09:05 Respiratory Rate 22 10/06/21 09:05 Blood Pressure 111/66 10/06/21 09:05 Pulse Oximetry 100 10/06/21 09:05 GENERAL: Well-appearing, well-nourished and in no acute distress. CARDIOVASCULAR: peripheral pulses in tact, cap refill <2 sec RESPIRATORY: No respiratory distress, speaks in full sentences without difficulty EXTREMITIES: Normal range of motion, no clubbing or edema. Neurovascularly intact. Left lower extremity she is able to flex and extend knee there is no swelling distal pedal pulse intact ankle has no swelling mild tenderness she has pain in her foot no swelling contusion or erythema. NEUROLOGICAL: Cranial nerves II through XII grossly intact. Normal gait and speech. SKIN: Warm, dry, no petechiae, no rashes or lesions. Course Orders Ordered: ED Orders 10/06/21 09:07 XR ankle LT min 3V Stat XR foot LT min 3V Stat XR knee LT 3V Stat Vital Signs Vital signs: Vital Signs - 8 hr 10/06/21 09:05 10/06/21 10:33 Temperature 97.2 F L Pulse Rate 106 H 87 Respiratory Rate 22 12 Blood Pressure 111/66 109/67 Pulse Oximetry 100 100 MDM - Extremity Injury (Lower) Imaging Data Extremity x-ray #1: Radiologist's Impression: PROCEDURE:? XR ANKLE LT MIN 3V ? INDICATIONS:? pain injury ? TECHNIQUE:? 3 views of the ankle were acquired.? ? COMPARISON:? None. ? FINDINGS:? ? Bones:? No fractures or dislocations.? Ankle mortise is normally aligned.? No suspicious bony lesions.? ? Soft tissues:? No tibiotalar joint effusion.? Achilles tendon appears normal.? ? ? IMPRESSION:? Unremarkable left ankle radiographs ? Approved by: Wisam Wiley M.D. on 10/06/2021 at 9:01? Extremity x-ray #2: Radiologist's Impression: PROCEDURE:? XR FOOT LT MIN 3V ? INDICATIONS:? pain ? TECHNIQUE:? 3 views of the foot were acquired.? ? COMPARISON:? None. ? FINDINGS:? ? Bones:? No fractures or dislocations.? No suspicious bony lesions.? ? Soft tissues:? No tibiotalar joint effusion.? Achilles tendon appears normal.? ? ? IMPRESSION:? Unremarkable left foot radiographs ? ? ? Approved by: Wisam Wiely M.D. on 10/06/2021 at 9:00? Extremity x-ray #3: Radiologist's Impression: PROCEDURE:? XR KNEE LT 3V ? INDICATIONS:? pain injury yesterday ? TECHNIQUE:? 3 views of the knee were acquired.? ? COMPARISON:? None. ? FINDINGS:? ? Bones:? No fractures or dislocations.? No suspicious bony lesions.? Suture anchors noted in the patella ? Soft tissues:? No joint effusion.? No suspicious soft tissue calcifications.? Prepatellar soft tissue swelling. ? ? IMPRESSION:? Prepatellar soft tissue swelling.? No fracture. ? ? ? Approved by: Wisam Wiley M.D. on 10/06/2021 at 8:59? MDM Narrative Medical decision making narrative: Patient is not a candidate for NSAIDs due to chronic ongoing abdominal pain. She has had multiple prescriptions and doses of opiate medication from the emergency department. She is offered Tylenol but she has she is unable to swallow pills, so she declined. Her x-rays are negative. She is offered a knee immobilizer and crutches however she declines those as well. Discharge Plan Departure Patient Disposition: Home Clinical Impression: Knee sprain Instructions: DI for Knee Sprain Activity Restrictions/Additional Instructions: *You have been diagnosed with left knee sprain *What to do: At this time elevate ice at 8:30 p.m. minutes. Wear knee brace well active he has crutches. *Continue to take medications as directed Do not take ibuprofen or NSAIDs due to your stomach Tylenol 1000 mg every 6 hours if needed for pain *Follow up with your primary care provider in 2-3 days or call [phone] *Return to ER if you should have pain swelling redness fever or any new, worsening or concerning symptoms Prescriptions: No Action alprazolam 1 mg tablet 1 mg PO TID PRN (Reason: Anxiety) 0RF Label Comments: TAKE 1 TABLET BY MOUTH THREE TIMES DAILY NEEDED FOR SEVERE ANXIETY quetiapine 200 mg tablet 200 mg PO BEDTIME 0RF Label Comments: TAKE 1 TABLET BY MOUTH AT BEDTIME zolpidem 10 mg tablet 10 mg PO BEDTIME PRN (Reason: Insomnia) 0RF Label Comments: TAKE 1 TABLET BY MOUTH EVERY DAY AT BEDTIME hydrocodone-acetaminophen 5-325 mg tablet 1 tab PO Q6H PRN (Reason: pain) Qty: 8 0RF ondansetron 4 mg tablet,disintegrating 4 mg PO Q6HR PRN (Reason: nausea and vomiting) Qty: 10 0RF dicyclomine 10 mg capsule 10 mg PO TID Qty: 30 0RF metoclopramide HCl 10 mg tablet,disintegrating 10 mg PO Q6H Qty: 14 0RF famotidine [Pepcid] 40 mg tablet 40 mg PO BEDTIME Qty: 14 0RF pantoprazole [Protonix] 40 mg tablet,delayed release (DR/EC) 40 mg PO DAILY Qty: 30 0RF
--- NOTE | 2021-10-06 10:26 | PC.NURSE ---
pt refused a knee immobilizer, crutches. was offered tylenol and refused. dr. lock aware
[2021-10-06 10:33] VITALS: BP 109/67; PULSE 87; RESP 12; O2SAT 100
== END 2021-10-06 10:35 | disposition home or self-care (01) ==
PROVIDERS: Emergency Provider Emergency Medicine
DX: S83.92XA Sprain of unspecified site of left knee, initial encounter (principal); W18.30XA Fall on same level, unspecified, initial encounter
CPT/HCPCS: 73562; 73610; 73630; 99281; 99283

== ENCOUNTER → 2022-01-25 14:40 | Outpatient (CLI) | payer OTHER, MEDICAID, SELFPAY | PROVIDERS: Visit Provider Physician Assistant | DX: N34.3 Urethral syndrome, unspecified (principal) | CPT/HCPCS: 81002; 87077; 87086; 87186 ==

== ENCOUNTER 2022-12-23 18:12 | Emergency (ER) | payer MEDICARE, MEDICAID, SELFPAY ==
[2022-12-23 18:15] VITALS: BP 111/78; PULSE 104; RESP 15; TEMP 36.7; O2SAT 100; BMI 31.6
--- NOTE | 2022-12-23 18:19 | DI.US.S_ITS ---
PROCEDURE: US PERIPH VENOUS LOW EXTREM RT INDICATIONS: PAIN TECHNIQUE: Real-time imaging, as well as color and pulse Doppler interrogation, were performed of the lower extremity deep veins from the inguinal ligament to the popliteal fossa. COMPARISON: None. FINDINGS: The common femoral, femoral and popliteal veins are normally compressible, and free of intraluminal thrombus. Color and pulse Doppler demonstrate normal phasic intraluminal flow. There is normal augmentation response to distal compression maneuver. IMPRESSION: Negative for deep venous thrombosis. Dictated by: Vineet Boudreaux M.D. on 12/23/2022 at 18:29 Approved by: Vineet Boudreaux M.D. on 12/23/2022 at 18:30
--- NOTE | 2022-12-23 19:02 | ED_ITS ---
HPI - Extremity Problem <Ceferino Vickers PA-C - Last Filed: 12/23/22 19:46> General Chief complaint: Extremity Problem,Nontraumatic Stated complaint: [facility] SENT/swollen rt calf Time Seen by Provider: 12/23/22 18:34 Source: patient Mode of arrival: Ambulatory History of Present Illness HPI Narrative: 32-year-old female with past medical history anxiety, anemia, depression presents to the ED with 3 days of right lower leg pain. Patient states that the pain spontaneously started, is worse when standing. Patient describes the pain to be in the right lower leg from the popliteal region down into the calf. Patient is a smoker. Patient denies prior history of DVTs or PEs. Patient is not on exogenous estrogen. No recent travel or immobilization. Patient was seen in the walk-in clinic earlier today and sent to the ED to rule out a DVT. Patient denies numbness, tingling, weakness. Pain worsens when she stands up for 5 minutes or longer. Denies any known trauma. Related Data Previous Rx's Medication Instructions Recorded fluconazole 150 mg tablet 150 mg PO ONCE yeast infection #1 09/09/22 (Diflucan) tab zolpidem 12.5 mg tablet,extended 12.5 mg PO BEDTIME #30 tabs 09/10/22 release,multiphase lorazepam 1 mg tablet 0.5 mg PO DAILY PRN fear of flying 10/16/22 #20 tabs quetiapine 200 mg tablet See Rx Instructions .Route 11/06/22 .COMPLEX #90 tabs Allergies Allergy/AdvReac Type Severity Reaction Status Date / Time cephalexin [From Keflex] Allergy Hives Verified 12/23/22 18:15 ketorolac [From Toradol] Allergy ITCHING Verified 12/23/22 18:15 latex Allergy Verified 12/23/22 18:15 tramadol Allergy Hives Verified 12/23/22 18:15 Review of Systems <Ceferino Vickers PA-C - Last Filed: 12/23/22 19:46> Review of Systems ROS Unobtainable: All systems reviewed & are unremarkable except as noted in HPI and below Constitutional Constitutional: Denies chills, Denies fatigue, Denies fever(s), Denies frequent falls, Denies lethargy and Denies weakness Eyes Eyes: Denies change in vision, Denies eye discharge, Denies irritation and Denies loss of vision ENT Ears, Nose, Mouth, and Throat: Denies change in voice, Denies dizziness, Denies neck pain, Denies sore throat and Denies throat swelling Cardiovascular Cardiovascular: Denies chest pain, Denies irregular heart rhythm, Denies lightheadedness, Denies palpitations, Denies dyspnea, Denies dyspnea on exertion and Denies orthopnea Respiratory Respiratory: Denies cough, Denies dyspnea, Denies dyspnea on exertion and Denies wheezing Gastrointestinal Gastrointestinal: Denies abdominal pain, Denies change in bowel habits, Denies diarrhea, Denies nausea and Denies vomiting Genitourinary Genitourinary: Denies hematuria, Denies flank pain, Denies urinary incontinence and Denies urinary urgency Musculoskeletal Musculoskeletal: Denies back pain, Denies muscle weakness, Denies neck pain, Denies numbness and Denies tingling Comments: Right lower leg pain Integumentary/Breasts Skin/Breast: Denies pruritus, Denies erythema, Denies rash and Denies wounds Neurologic Neurologic: Denies behavioral changes, Denies confusion, Denies dizziness, Denies frequent falls, Denies loss of vision, Denies numbness, Denies tingling and Denies weakness Psychiatric Psychiatric: Denies anxiety, Denies behavioral changes, Denies confusion, Denies depression, Denies homicidal ideation and Denies suicidal ideation Endocrine Endocrine: Denies fatigue, Denies flushing and Denies palpitations Hematologic/Lymphatic Hematologic/Lymphatic: Denies easy bruising Allergic/Immunologic Allergic/Immunologic: Denies urticaria, Denies throat swelling and Denies wheezing Patient History <Ceferino Vickers PA-C - Last Filed: 12/23/22 19:46> Medical History Anemia Anxiety Dental infection Depression Frequent UTI Herpes Insomnia Iron deficiency anemia PTSD (post-traumatic stress disorder) Wound dehiscence Surgical History Anesthesia History of section (~2013) History of knee surgery Social History Smoking Status: Current every day smoker Smoking Status: Current every day smoker tobacco type: cigarettes alcohol intake frequency: holidays/special occasions only Substance Use Type: does not use Exam <HENOK Madden Last Filed: 12/23/22 19:46> Narrative Exam Narrative: Const General:?cooperative, healthy appearing and comfortable [facility] Head:?normal to inspection Ears:?hearing grossly normal bilaterally Nose:?external nose normal Face and sinus:?normal facial exam and sinuses nontender Mouth:?oral mucosae normal Throat:?posterior oropharynx normal Eyes General:?appearance normal, both eyes and all related structures Neck Neck:?normal visual inspection and no lymphadenopathy noted Resp Effort & Inspection:?normal respiratory effort Auscultation:?clear to auscultation bilaterally Cardio Rate:?regular rate Rhythm:?regular rhythm Musculoskeletal No swelling, deformities, erythema noted on exam. There is tenderness to palpation from the right popliteal region down into the medial calf. There is full range of motion. Strength and sensation is intact. Neurovascularly intact. Neuro General:?patient alert, patient awake and patient oriented x3 Initial Vital Signs Initial Vital Signs: Vital Signs Temperature 98.0 F 12/23/22 18:15 Pulse Rate 104 H 12/23/22 18:15 Respiratory Rate 15 12/23/22 18:15 Blood Pressure 111/78 12/23/22 18:15 Pulse Oximetry 100 12/23/22 18:15 Oxygen Delivery Method Room Air 12/23/22 18:15 <Marc Jimenez DO - Last Filed: 12/24/22 05:45> Initial Vital Signs Initial Vital Signs: Vital Signs Temperature 98.0 F 12/23/22 18:15 Pulse Rate 104 H 12/23/22 18:15 Respiratory Rate 15 12/23/22 18:15 Blood Pressure 111/78 12/23/22 18:15 Pulse Oximetry 100 12/23/22 18:15 Oxygen Delivery Method Room Air 12/23/22 18:15 Course <Ceferino Vickers PA-C - Last Filed: 12/23/22 19:46> Orders Ordered: Discontinued Medications Acetaminophen (Acetaminophen 325 Mg Tablet) 975 mg PO NOW ONE Stop: 12/23/22 19:35 Last Admin: 12/23/22 19:56 Dose: Not Given Documented By: SHERRIE Ibuprofen (Ibuprofen 400 Mg Tablet) 800 mg PO NOW ONE Stop: 12/23/22 19:47 Last Admin: 12/23/22 19:55 Dose: 800 mg Documented By: SHERRIE Lidocaine (Lidocaine Patch 1 Each Adh..Patch) 1 each TOP NOW ONE Stop: 12/23/22 19:37 Last Admin: 12/23/22 19:45 Dose: 1 each Documented By: SHERRIE Vital Signs Vital signs: Vital Signs - 8 hr 12/23/22 18:15 Temperature 98.0 F Pulse Rate 104 H Respiratory Rate 15 Blood Pressure 111/78 Pulse Oximetry 100 Oxygen Delivery Method Room Air <Marc Jimenez DO - Last Filed: 12/24/22 05:45> Orders Ordered: Discontinued Medications Acetaminophen (Acetaminophen 325 Mg Tablet) 975 mg PO NOW ONE Stop: 12/23/22 19:35 Last Admin: 12/23/22 19:56 Dose: Not Given Documented By: SHERRIE Ibuprofen (Ibuprofen 400 Mg Tablet) 800 mg PO NOW ONE Stop: 12/23/22 19:47 Last Admin: 12/23/22 19:55 Dose: 800 mg Documented By: SHERRIE Lidocaine (Lidocaine Patch 1 Each Adh..Patch) 1 each TOP NOW ONE Stop: 12/23/22 19:37 Last Admin: 12/23/22 19:45 Dose: 1 each Documented By: SHERRIE Vital Signs Vital signs: Vital Signs - 8 hr 12/23/22 18:15 Temperature 98.0 F Pulse Rate 104 H Respiratory Rate 15 Blood Pressure 111/78 Pulse Oximetry 100 Oxygen Delivery Method Room Air MDM - Extremity (Nontraumatic) <Ceferino Vickers PA-C - Last Filed: 12/23/22 19:46> MDM Narrative Medical decision making narrative: 32-year-old female with past medical history anxiety, anemia, depression presents to the ED with 3 days of right lower leg pain. Concern for DVT versus musculoskeletal sprain/strain versus other. Obtained ultrasound with no evidence of DVT or other acute findings. Physical exam is also most consistent with a musculoskeletal sprain/strain. Gave Tylenol, lidocaine patch for symptoms. Discharged home with supportive care including lidocaine patches, heat packs, rest, elevation, Tylenol/ibuprofen. Patient also agrees to follow- up with PCP soon as possible. ED return precautions were discussed with patient. Patient verbalized understanding. Medical records reviewed: Yes Discharge Plan Departure Patient Disposition: Home Clinical Impression: Leg pain Instructions: DI for Leg Pain Activity Restrictions/Additional Instructions: You were evaluated in the ED today for leg pain. The ultrasound did not show any DVTs. Your physical exam is more consistent with a musculoskeletal sprain/strain. You may take Tylenol for the symptoms, you may also apply lidocaine patches, heat packs. Please follow-up with your PCP as soon as possible. Return to the ED if you experience any numbness, tingling, weakness. Prescriptions: No Action zolpidem 12.5 mg tablet,ext release multiphase 12.5 mg PO BEDTIME Qty: 30 2RF quetiapine 200 mg tablet See Rx Instructions .ROUTE .COMPLEX Qty: 90 0RF Dose Instruction: TAKE 1 TABLET BY MOUTH AT BEDTIME Rx Instructions: TAKE 1 TABLET BY MOUTH AT BEDTIME lorazepam 1 mg tablet 0.5 mg PO DAILY PRN (Reason: fear of flying) Qty: 20 0RF fluconazole [Diflucan] 150 mg tablet 150 mg PO ONCE Qty: 1 1RF Rx Instructions: as a single dose. can repeat in 3 days if needed. Referrals: Cuba Byrne DO [Primary Care Provider] - Stand Alone Forms: Patient Portal/API <Marc Jimenez DO - Last Filed: 12/24/22 05:45> Cosign ED Attending Sevenature Attestation: I was immediately available in the department for consultation. Documentation has been reviewed. I agree with assessment and plan.
[2022-12-23] MEDS: LIDOCAINE PATCH 1 EACH ADH..PATCH TOP (19:45)
[2022-12-23] MEDS: IBUPROFEN 400 MG TABLET 800 MG PO (19:55)
[2022-12-23 20:02] VITALS: BP 115/58; PULSE 82; RESP 16; O2SAT 99
== END 2022-12-23 20:03 | disposition home or self-care (01) ==
PROVIDERS: Emergency Provider Student in an Organized Health Care Education/Training Program; PCP Family Medicine
DX: M79.661 Pain in right lower leg (principal)
CPT/HCPCS: 93971; 99283

== ENCOUNTER → 2022-12-26 13:58 | Outpatient (CLI) | payer MEDICARE, MEDICAID, SELFPAY ==
[2022-12-26 14:19] LABS: Add Manual Diff / Slide Review NO; Basophils Absolute Auto 100 /uL (0-100); Basophils Percent Auto 0.6 % (0-2); Eosinophils Absolute Auto 200 /uL (0-450); Hematocrit 30.1 % (36-46); Hemoglobin 9.4 g/dL (12.0-16.0); Lymphocytes Absolute Auto 2300 /uL (1100-4500); Lymphocytes Percent Auto 25.8 % (25-40); Mean Corpuscular HGB Conc 31.4 % (30-36); Mean Corpuscular Volume 63.8 fL (80-100); Monocytes Absolute Auto 300 /uL (0-900); Monocytes Percent Auto 3.5 % (3-14); Neutrophils Absolute Auto 6000 /uL (1500-7000); Neutrophils Percent Auto 68.1 % (50-75); Platelet Count 350 X10^3/uL (150-400); Red Blood Cell Count 4.72 X10^6/uL (4.0-5.2); Red Cell Distribution Width 17.4 % (11.6-14.8); White Blood Cell Count 8.7 X10^3/uL (4.5-11.0)
[2022-12-26 14:35] LABS: Anisocytosis 1+; Microcytosis 2+; Ovalocytes 1+; Poikilocytosis 1+
[2022-12-26 14:39] LABS: Alanine Aminotransferase 29 IU/L (<35); Albumin 4.7 g/dL (3.5-5.0); Albumin Globulin Ratio 1.5 (1.0-2.8); Alkaline Phosphatase 78 U/L (38-126); Aspartate Aminotransferase 22 IU/L (14-36); BUN Creatinine Ratio 15.5 (6-22); Bilirubin Total 0.4 mg/dL (0.2-1.3); Blood Urea Nitrogen 11 mg/dL (7-17); Calcium 9.3 mg/dL (8.4-10.2); Carbon Dioxide 25 mmol/L (22-32); Chloride 105 mmol/L (98-107); Estimated Glomerular Filt Rate > 60 mL/min (>60); Globulin 3.2 g/dL (1.7-4.1); Glucose 102 mg/dL (70-100); HEMOLYSIS < 15 (0-50); Potassium 3.8 mmol/L (3.4-5.1); Sodium 140 mmol/L (137-145); Total Protein 7.9 g/dL (6.3-8.2)
== END ==
PROVIDERS: PCP Family Medicine; Referring Provider Student in an Organized Health Care Education/Training Program; Visit Provider Student in an Organized Health Care Education/Training Program
DX: L98.9 Disorder of the skin and subcutaneous tissue, unspecified (principal); L02.91 Cutaneous abscess, unspecified
CPT/HCPCS: 36415; 80053; 85025; 87070; 87075; 87077; 87186; 87205